=== PATIENT | male | born 1950 ===

== ENCOUNTER 2018-07-24 10:00 | Inpatient (IN) | payer MEDICARE, MEDICAID ==
[~2018-07-24 10:00] MED LIST: Metoprolol Succinate 100 mg XL Tab PO SCH
[2018-07-24 10:15] VITALS: BMI 21.9
--- NOTE | 2018-07-24 10:33 | ED PDOC ---
Arrival/HPI - History of Present Illness Narrative History of Present Illness (Text): 07/24/18 10:32 65 yo M w/ PMH of HTN, DM, and kidney failure presents to ED s/p fall outside of his house this morning. He reports sitting on his walker and started to roll himself around when he slipped and fell on his back. He reports hitting his head on the pavement. Patient denies preceding dizziness, lightheadedness, loss of consciousness. He reports history of falls due to chronic hip issues making him feel weak. He reports mild L sided neck, shoulder, and hip pain. He denies slurred speech, facial droop, difficulty swallowing. He denies headache, fever, chills, abdominal pain, nausea, vomiting, chest pain, shortness of breath, diarrhea, dysuria. <Cristian Prince - Last Filed: 07/24/18 13:21> <Steven Plascencia - Last Filed: 07/24/18 14:58> - General Chief Complaint: Trauma Time Seen by Provider: 07/24/18 10:02 Past Medical History - Infectious Disease Hx of Infectious Diseases: None - Cardiac Hx Cardiac Disorders: Yes Hx Hypertension: Yes - Pulmonary Hx Respiratory Disorders: No - Neurological Hx Neurological Disorder: No - Renal Hx Dialysis: Yes (LAV shunt) - Endocrine/Metabolic Hx Diabetes Mellitus Type 2: Yes - Hematological/Oncological Hx Blood Disorders: No - Integumentary Hx Dermatological Disorder: No - Musculoskeletal/Rheumatological Hx Arthritis: Yes - Gastrointestinal Hx Gastrointestinal Disorders: No - Genitourinary/Gynecological Hx Genitourinary Disorders: No - Psychiatric Hx Psychophysiologic Disorder: No Hx Substance Use: No - Surgical History Hx Joint Replacement: Yes (LEFT HIP) Hx Vascular Surgery: Yes (L AVF) - Anesthesia Hx Anesthesia: Yes Hx Anesthesia Reactions: No Hx Malignant Hyperthermia: No <Cristian Prince - Last Filed: 07/24/18 13:21> - Provider Review Nursing Documentation Reviewed: Yes <Steven Plascencia - Last Filed: 07/24/18 14:58> Family/Social History Family/Social History: Diabetes, Hypertension Smoking Status: Never Smoked Hx Alcohol Use: No Hx Substance Use: No <Cristian Prince - Last Filed: 07/24/18 13:21> - Physician Review Nursing Documentation Reviewed: Yes <Steven Plascencia - Last Filed: 07/24/18 14:58> Allergies/Home Meds <Cristian Prince - Last Filed: 07/24/18 13:21> <Steven Plascencia - Last Filed: 07/24/18 14:58> Allergies/Adverse Reactions: Allergies No Known Allergies Allergy (Verified 01/26/16 20:01) Home Medications: Home Meds Medication Instructions Recorded Confirmed Atorvastatin [Lipitor] 20 mg PO DAILY 07/24/18 07/24/18 Insulin Detemir [Levemir] 15 unit SC HS 07/24/18 07/24/18 Metoprolol Succinate XL [Toprol XL] 200 mg PO DAILY 07/24/18 07/24/18 Pregabalin [Lyrica] 150 mg PO DAILY 07/24/18 07/24/18 SITagliptin [Januvia] 50 mg PO DAILY 07/24/18 07/24/18 Sevelamer Carbonate [Renvela] 1,600 mg PO TID 07/24/18 07/24/18 Telmisartan 80 mg PO DAILY 07/24/18 07/24/18 Vit B Cplx C No.13/Folic AC/D3 1 each PO DAILY 07/24/18 07/24/18 [Nephrocaps Qt Tablet] Review of Systems - Review of Systems Constitutional: absent: Fatigue, Fevers Eyes: absent: Vision Changes Respiratory: absent: SOB, Cough Cardiovascular: absent: Chest Pain, Syncope Gastrointestinal: absent: Abdominal Pain, Diarrhea, Nausea, Vomiting Genitourinary Male: absent: Dysuria Musculoskeletal: Neck Pain Neurological: absent: Headache, Dizziness, Focal Weakness, Gait Changes, Speech Changes, Facial Droop <Cristian Prince - Last Filed: 07/24/18 13:21> - Physician Review All systems were reviewed & negative as marked: Yes <Steven Plascencia - Last Filed: 07/24/18 14:58> Physical Exam Vital Signs Temp Pulse Resp BP Pulse Ox 07/24/18 10:01 98.2 F 73 18 190/80 H 99 Finger Stick Blood Glucose: 203 - Systems Exam Head: Present: Swelling (mild 2x2cm hemtoma without discoloration or bleeding) Pupils: Present: PERRL Extroacular Muscles: Present: EOMI Conjunctiva: Present: Normal Mouth: Present: Moist Mucous Membranes Neck: Present: Normal Range of Motion, Paraspinal Tenderness. No: Meningeal Signs, MIDLINE TENDERNESS Respiratory/Chest: Present: Clear to Auscultation. No: Respiratory Distress, Accessory Muscle Use, Wheezes, Rales, Rhonchi Cardiovascular: Present: Regular Rate and Rhythm Abdomen: Present: Normal Bowel Sounds. No: Tenderness, Distention, Rebound Back: Present: Paraspinal Tenderness. No: CVA Tenderness, Midline Tenderness Upper Extremity: Present: Normal Inspection, Normal ROM, Neurovascularly Intact. No: Edema Lower Extremity: Present: Normal Inspection, Other (4+ strength b/l) Neurological: Present: GCS=15, CN II-XII Intact, Speech Normal, Motor Func Grossly Intact, Normal Sensory Function, Normal 2Pt Descrimination Skin: Present: Normal Color Psychiatric: Present: Alert, Oriented x 3 <Cristian Prince - Last Filed: 07/24/18 13:21> Vital Signs Reviewed: Yes Vital Signs Temp Pulse Resp BP Pulse Ox 07/24/18 10:01 98.2 F 73 18 190/80 H 99 Temperature: Afebrile Blood Pressure: Hypertensive Pulse: Regular Respiratory Rate: Normal Appearance: Positive for: Well-Appearing, Non-Toxic, Comfortable Pain Distress: None <Steven Plascencia - Last Filed: 07/24/18 14:58> Medical Decision Making ED Course and Treatment: 07/24/18 13:22 Nephro consulted, patient to be admitted for HD. <Cristian Prince - Last Filed: 07/24/18 13:21> ED Course and Treatment: 07/24/18 10:50 In agreement with resident note which contains more details about the patient. Patient seen and evaluated with resident. Came up with plan and treatment together. 68 year old male presents to the ED for medical evaluation s/p mechanical fall at home. Plan: -- CT of head -- Labs -- Tylenol -- X-ray of Left Hip 07/24/18 14:57 seen with residnet s/p mechanical fall imiagng neg. spoke to dr nick boswell hd today as missed at home. . accepted hospitalsist - RAD Interpretation Radiology Orders: 07/24/18 10:33 HEAD W/O CONTRAST [CT] Stat <Steven Plascencia - Last Filed: 07/24/18 14:58> - PA / FAMILY WELFARE SOCIAL WORK PROFESSOR / Resident Statement / has reviewed & agrees with the documentation as recorded. / has examined the patient and agrees with the treatment plan. - Scribe Statement The provider has reviewed the documentation as recorded by the Scribe Vy Duong. All medical record entries made by the Scribe were at my direction and personally dictated by me. I have reviewed the chart and agree that the record accurately reflects my personal performance of the history, physical exam, medical decision making, and the department course for this patient. I have also personally directed, reviewed, and agree with the discharge instructions and disposition. <Steven Plascencia - Last Filed: 07/24/18 14:58> Disposition/Present on Arrival - Present on Arrival Any Indicators Present on Arrival: Yes History of DVT/PE: No History of Uncontrolled Diabetes: Yes Urinary Catheter: No History of Decub. Ulcer: No History Surgical Site Infection Following: None - Disposition Have Diagnosis and Disposition been Completed?: Yes Disposition Time: 13:22 <Cristian Prince - Last Filed: 07/24/18 13:21> <Steven Plascencia - Last Filed: 07/24/18 14:58> - Disposition Diagnosis: Kidney disease, chronic, end stage on dialysis, Diabetes mellitus, Hypertension Disposition: HOSPITALIZED Patient Problems: Current Active Problems Problem Status Onset Diabetes mellitus Acute Hypertension Acute Kidney disease, chronic, end stage on dialysis Acute Condition: STABLE
[2018-07-24 11:22] LABS: BASO # 0.02 K/mm3 (0.0-2.0); BASO % 0.3 % (0.0-3.0); EOS # 0.4 (0.0-0.7); EOS % 5.5 % (1.5-5.0); HEMOGLOBIN 11.1 g/dL (14.0-18.0); LYMPH # 1.1 (1.2-3.4); LYMPH % 16.2 % (22.0-35.0); MEAN CELL VOLUME 96.1 fl (80.0-105.0); MEAN CORPUSCULAR HEMOGLOBIN 30.7 pg (25.0-35.0); MEAN CORPUSCULAR HGB CONC 31.9 g/dl (31.0-37.0); MEAN PLATELET VOLUME 10.4 fl (7.0-11.0); MONO # 0.3 (0.1-0.6); MONO % 4.1 % (1.0-6.0); RBC 3.62 10^6/uL (3.5-6.1); RED CELL DISTRIBUTION WIDTH 13.7 % (11.5-14.5); WHITE BLOOD COUNT 6.8 10^3/uL (4.5-11.0)
[2018-07-24 11:23] LABS: INR 0.98; PARTIAL THROMBOPLASTIN TIME 34.4 Seconds (26.9-38.3); PROTHROMBIN TIME 11.1 SECONDS (9.4-12.5)
[2018-07-24 12:02] LABS: ALB/GLOB RATIO 1.2 (1.1-1.8); ALBUMIN 3.7 g/dL (3.0-4.8); CALCIUM 9.3 mg/dL (8.4-10.5)
--- NOTE | 2018-07-24 12:28 | CT ---
Date of service: 07/24/2018 PROCEDURE: CT HEAD WITHOUT CONTRAST. HISTORY: s/p fall COMPARISON: None available. TECHNIQUE: Axial computed tomography images were obtained through the head/brain without intravenous contrast. Radiation dose: Total exam DLP = 2620.23 mGy-cm. This CT exam was performed using one or more of the following dose reduction techniques: Automated exposure control, adjustment of the mA and/or kV according to patient size, and/or use of iterative reconstruction technique. FINDINGS: HEMORRHAGE: No intracranial hemorrhage. BRAIN: No mass effect or edema. Minimal diffuse atrophy consistent with patient age. Moderate patchy and confluent deep/subcortical white matter lucency and periventricular white matter lucency consistent with microvascular white matter ischemic change. No evidence of acute infarct. Old bilateral basal ganglia lacunar infarcts. VENTRICLES: Unremarkable. No hydrocephalus. CALVARIUM: Unremarkable. PARANASAL SINUSES: Unremarkable as visualized. No significant inflammatory changes. MASTOID AIR CELLS: Unremarkable as visualized. No inflammatory changes. OTHER FINDINGS: None. IMPRESSION: No acute intracranial hemorrhage. Age related atrophy and chronic white matter ischemic change. Old bilateral basal ganglia lacunar infarcts.
--- NOTE | 2018-07-24 13:28 | RAD ---
Date of service: 07/24/2018 PROCEDURE: Pelvis and left hip HISTORY: fall COMPARISON: TECHNIQUE: Four views were obtained FINDINGS: The right hip is unremarkable. There is a left hip prosthesis with deformity of the proximal femur. There is erosion and widening of the left acetabulum. The femoral head is seated within the acetabulum. IMPRESSION: No acute findings
--- NOTE | 2018-07-24 13:30 | RAD ---
Date of service: 07/24/2018 PROCEDURE: Left Femur Radiographs. HISTORY: fall COMPARISON: None. TECHNIQUE: AP and Lateral Radiographs of the left femur. 4 views obtained. FINDINGS: FEMUR: There is a left hip prosthesis and a small caliber femoral stephen. There is no acute fracture. SOFT TISSUES: Normal. OTHER FINDINGS: None. IMPRESSION: There is a left hip prosthesis and a small caliber femoral stephen. There is no acute fracture.
--- NOTE | 2018-07-24 14:35 | CP.PCM.HP ---
<Veronica Hassan - Last Filed: 07/25/18 06:28> History of Present Illness - History of Present Illness History of Present Illness: HISTORY & PHYSICAL FOR HOSPITALIST SERVICE- DR. RAGHAVENDRA Hassan PGY1 68 y/o M with PMHx of ESRD on HD MWF, IDDM2, HTN, HLD presented to ED after he had feel backwards while walking outside on his way to dialysis. Pt reports he was was sitting on his walker when the walker tipped and he fell backwards on the concrete floor, hitting the back of his head and L shoulder. He reports continues back pain, L shoulder pain and L hip pain. He denies any preceding symptoms of headache, dizziness, chest pain, palpitations, one-sided weakness. He denies loss of consciousness or residual neurological symptoms, including numbness, tingling and weakness after the fall. Pt had a L femoral arthroplasty in the past and reports difficulty walking since the surgery. He uses a walker at home, however still has difficulty walking. Upon interview, pt denies, fevers, chills, headache, dizziness, numbness, tingling, chest pain, palpitations, shortness of breath, dysphagia, nausea, vomiting, constipation, diarrhea. He makes minimal urine d/t ESRD. PMH: ESRD on HD MWF, HTN, HLD All: NKDA SH: Previous hx of tobacco abuse, 5 pack/year smoking history. Previous ETOH a buse, 10 beers/day x 5 years. Denies current use. Denies illiicit drug use PSH: L hip arthroplasty 2011 ([facility] [place]) FH: Mother: Alive: HTN, DM2, Pacemaker. Father: : at 36 y/o due to "bleeding ulcer" Meds: Lyrica 150mg qd, Toprol XL 200mg qd, Telmesartan 80mg qd, Renvela 800mg 2 tab tid, Lipitor 20mg qd, Januvia 50mg qd, Nephro caps 1 tab qd, Levemir 15u HS PMD: Dr. Kulwant Lucio Pharmacy: [facility] [place] French Teacher: Dr. Aleyda De La Garza. HD @ [facility] Present on Admission - Present on Admission Any Indicators Present on Admission: No Review of Systems - Review of Systems Review of Systems: per HPI Past Patient History - Infectious Disease Hx of Infectious Diseases: None - Past Social History Smoking Status: Never Smoked - CARDIAC Hx Cardiac Disorders: Yes Hx Hypertension: Yes - PULMONARY Hx Respiratory Disorders: No - NEUROLOGICAL Hx Neurological Disorder: No - RENAL Hx Dialysis: Yes (LAV shunt) - ENDOCRINE/METABOLIC Hx Diabetes Mellitus Type 2: Yes - HEMATOLOGICAL/ONCOLOGICAL Hx Blood Disorders: No - INTEGUMENTARY Hx Dermatological Problems: No - MUSCULOSKELETAL/RHEUMATOLOGICAL Hx Arthritis: Yes - GASTROINTESTINAL Hx Gastrointestinal Disorders: No - GENITOURINARY/GYNECOLOGICAL Hx Genitourinary Disorders: No - PSYCHIATRIC Hx Psychophysiologic Disorder: No Hx Substance Use: No - SURGICAL HISTORY Hx Joint Replacement: Yes (LEFT HIP) Hx Vascular Surgery: Yes (L AVF) - ANESTHESIA Hx Anesthesia: Yes Hx Anesthesia Reactions: No Hx Malignant Hyperthermia: No Meds Allergies/Adverse Reactions: Allergies Allergy/AdvReac Type Severity Reaction Status Date / Time No Known Allergies Allergy Verified 01/26/16 20:01 Physical Exam - Constitutional Appears: Well, Non-toxic, No Acute Distress, Chronically Ill - Head Exam Head Exam: NORMAL INSPECTION Additional comments: Occipital abrasion. No skin tear - Eye Exam Eye Exam: EOMI, Normal appearance, PERRL - ENT Exam ENT Exam: Mucous Membranes Moist, Normal Exam - Neck Exam Neck exam: Positive for: Normal Inspection Additional comments: No posterior cervical spine tenderness - Respiratory Exam Respiratory Exam: Clear to Auscultation Bilateral, NORMAL BREATHING PATTERN - Cardiovascular Exam Cardiovascular Exam: REGULAR RHYTHM, +S1, +S2 - GI/Abdominal Exam GI & Abdominal Exam: Normal Bowel Sounds, Soft. absent: Tenderness - Extremities Exam Extremities exam: Positive for: normal inspection. Negative for: calf tenderness Additional comments: LUE fistula with bruit noted - Back Exam Back exam: NORMAL INSPECTION - Neurological Exam Neurological exam: Alert, Oriented x3 - Psychiatric Exam Psychiatric exam: Normal Affect, Normal Mood - Skin Skin Exam: Dry, Intact, Warm Results - Vital Signs Recent Vital Signs: Last Vital Signs Temp 98 F 07/24/18 14:06 Pulse 66 07/24/18 14:06 Resp 18 07/24/18 14:06 BP 162/81 H 07/24/18 14:06 Pulse Ox 97 07/24/18 14:06 - Labs Result Diagrams: 07/24/18 10:50 07/24/18 10:50 Labs: Laboratory Results - last 24 hr 0407/24/18 07/24/18 10:50 10:50 10:50 WBC 6.8 RBC 3.62 Hgb 11.1 L Hct 34.8 L MCV 96.1 MCH 30.7 MCHC 31.9 RDW 13.7 Plt Count 168 MPV 10.4 Neut % (Auto) 73.9 H Lymph % (Auto) 16.2 L [place] % (Auto) 4.1 Eos % (Auto) 5.5 H Baso % (Auto) 0.3 Lymph # (Auto) 1.1 L [place] # (Auto) 0.3 Eos # (Auto) 0.4 Baso # (Auto) 0.02 Absolute Neuts (auto) 5.00 PT 11.1 INR 0.98 APTT 34.4 Sodium 138 Potassium 4.0 Chloride 99 Carbon Dioxide 28 Anion Gap 16 BUN 66 H Creatinine 10.8 H* Est GFR ( Amer) 6 Est GFR (Non-Af Amer) 5 Random Glucose 162 H Calcium 9.3 Total Bilirubin 0.4 AST 27 ALT 33 Alkaline Phosphatase 118 Total Protein 6.8 Albumin 3.7 Globulin 3.1 Albumin/Globulin Ratio 1.2 Assessment & Plan - Assessment and Plan (Free Text) Assessment: 68 y/o M with PMHx of ESRD on HD MWF, IDDM2, HTN, HLD admitted to medicine service after experiencing mechanical fall. Pt missed his regularly scheduled Tuesday hemodialysis session, with plans to undergo dialysis during this hospital stay. Plan: ESRD -elevated BUN/Cr, 2/2 to missed dialysis session -Nephrology consulted -Pt to undergo HD today -Will resume pts home medications, including Renvela, & Nephro caps -Further recs per nephrology L Hip, Shoulder Pain -s/p mechanical fall -Hip/Pelvis/Femur xray performed in ER. Pending official radiologist impression -Physical therapy eval & treat -avoid nephrotoxic analgesics HTN -CT head revealing no acute changes, chronic microvascular changes -continue home metoprolol, telmesartan IDDM2 -continue home januvia, levemir -Start ISS-low w/ hypoglycemia protocol -f/u am Hgb A1c Case reviewed with attending physician, Dr. Raghavendra Hassan PGY1 <Pauly Mabry R - Last Filed: 07/28/18 21:08> Results - Vital Signs Recent Vital Signs: Last Vital Signs Temp 98.4 F 07/28/18 14:00 Pulse 66 07/28/18 14:00 Resp 18 07/28/18 14:00 BP 160/82 H 07/28/18 18:43 Pulse Ox 98 07/28/18 14:00 - Labs Result Diagrams: 07/28/18 08:25 07/28/18 08:25 Labs: Laboratory Results - last 24 hr 07/28/18 07/28/18 07/28/18 08:25 08:25 16:16 WBC 6.6 RBC 3.86 Hgb 11.8 L Hct 36.2 L MCV 93.8 MCH 30.6 MCHC 32.6 RDW 13.6 Plt Count 176 MPV 10.2 Sodium 136 Potassium 4.3 Chloride 102 Carbon Dioxide 22 Anion Gap 17 BUN 58 H Creatinine 9.2 H* D Est GFR ( Amer) 7 Est GFR (Non-Af Amer) 6 POC Glucose (mg/dL) 119 H Random Glucose 112 H Calcium 9.8 Attending/Attestation - Attestation I have personally seen and examined this patient.: Yes I have fully participated in the care of the patient.: Yes I have reviewed all pertinent clinical information: Yes Notes (Text): Patient seen and examined by me with resident at 1:45PM on 07/24/18 in the ED. Case including HPI, physical exam, and assessment and plan discussed with resident. Agree with above with following additions/corrections. Patient is a 68-year-old male with past medical history significant for ESRD on HD MWF, insulin dependent DM2, hypertension, gait instability after left hip arthroplasty, and neuropathy that presented to the emergency room s/p a fall. Patient states he was going to his dialysis and was sitting in his walker. He moved the walker on an uneven pavement when he fell over on his left side outside on concrete. Patient states he is now having left hip pain, left shoulder pain, and neck pain. Patient states he did hit his head but denies any headaches. He denies and dizziness or change in vision. No new weakness in arms or legs. He denies loss of consciousness. Patient denies any chest pain or shortness of breath. No palpitations. No fevers or chills. Patient states he makes very little urine and denies any dysuria. No diarrhea or constipation. Patient states that he was unable to do dialysis today. 12 point review of systems reviewed by me. Please see above HPI. All other systems negative. Physical exam: General: Awake and alert sitting up in bed in no acute distress HEENT: Positive abrasion posterior scalp. Extraocular muscles intact, pupils equal and reactive, no scleral icterus. Oropharynx is pink and moist. No p haryngeal erythema or exudate appreciated. Neck is supple. Hearing grossly intact. Ears and nose externally unremarkable. Cardiovascular: Regular rhythm.Normal S1 and S2. Positive systolic murmur. No rubs or gallops appreciated Pulmonary: Normal respiratory effort.No rhonchi, rales, or wheezing ap preciated. Gastrointestinal: Soft, nondistended. Nontender. Positive bowel sounds all 4 quadrants. No guarding. Musculoskeletal: Moves all extremities. No calf tenderness. No edema appreciated. Positive left hip tenderness. Left leg externally rotated. No cervical tenderness or decreased range of motion. Central nervous system: AAOx3, CN 2-12 grossly intact. Dermatologic: Skin warm and dry. 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 1. Left hip pain, left shoulder pain, neck pain s/p mechanical fall. Head CT per radiologist showed no acute intracranial hemorrhage, age related atrophy and chronic white matter ischemic change, old bilateral basal ganglia infarcts. Left femur xray per radiologist showed there is a left hip prosthesis and a small caliber femoral stephen, no acute fracture. Pending left shoulder xray. Pending c- spine CT. PT eval and treat. Fall precautions. 2. ESRD on HD MWF. Patient for dialysis today. Continue home continue home Renvela and Nephro caps. Nephrology recommendations appreciated. 3. Hypertension. Continue home metoprolol and telmisartan 4. Insulin dependent type 2 diabetes. Placed on insulin sliding scale. Continue home Januvia and Levemir. Monitor accuchecks. 5. Neuropathy. Continue home lyrica. Case was discussed in detail with patient regarding current diagnosis, study results, and treatment plan. All questions answered.
[2018-07-24] MEDS ORDERED: Dextrose 50% SYRINGE Inj (50 ml) IV PRN (14:46)
[2018-07-24] MEDS: Insulin Detemir 100 units/ml Vial (Levemir) SC SCH (21:39)
[2018-07-25] MEDS ORDERED: Lidocaine 5% Patch TD ONE (01:27)
[2018-07-25 06:42] LABS: BASO # 0.03 K/mm3 (0.0-2.0); BASO % 0.5 % (0.0-3.0); EOS # 0.4 (0.0-0.7); EOS % 6.6 % (1.5-5.0); HEMOGLOBIN 12.2 g/dL (14.0-18.0); LYMPH # 1.3 (1.2-3.4); LYMPH % 20.2 % (22.0-35.0); MEAN CELL VOLUME 94.7 fl (80.0-105.0); MEAN CORPUSCULAR HEMOGLOBIN 30.9 pg (25.0-35.0); MEAN CORPUSCULAR HGB CONC 32.6 g/dl (31.0-37.0); MEAN PLATELET VOLUME 10.6 fl (7.0-11.0); MONO # 0.4 (0.1-0.6); MONO % 5.6 % (1.0-6.0); RBC 3.95 10^6/uL (3.5-6.1); RED CELL DISTRIBUTION WIDTH 13.3 % (11.5-14.5); WHITE BLOOD COUNT 6.6 10^3/uL (4.5-11.0)
[2018-07-25 07:08] LABS: ALB/GLOB RATIO 1.2 (1.1-1.8); ALBUMIN 3.7 g/dL (3.0-4.8); CALCIUM 9.2 mg/dL (8.4-10.5)
[2018-07-25] MEDS: Insulin Reg-LOW-Coverage SC SCH ×3 (08:11→17:44)
--- NOTE | 2018-07-25 10:29 | CT ---
Date of service: 07/25/2018 PROCEDURE: CT Cervical Spine without contrast HISTORY: s/p fall COMPARISON: None available. TECHNIQUE: Axial computed tomography images were obtained of the cervical spine without the use of intravenous contrast. Coronal and sagittal reformatted images were created and reviewed. Radiation dose: Total exam DLP = 669.4 mGy-cm. This CT exam was performed using one or more of the following dose reduction techniques: Automated exposure control, adjustment of the mA and/or kV according to patient size, and/or use of iterative reconstruction technique. FINDINGS: VERTEBRAE: No fracture. Normal alignment. No destructive bony lesion. DISCS/SPINAL CANAL/NEURAL FORAMINA: Severe disc degeneration is seen at C5-6 and C6-7. There is complete loss of the disc space at these levels as well as bony sclerosis and irregularity of the vertebral endplate. Anterior osteophytes are also seen. There is bilateral foraminal stenosis but no significant central stenosis at these levels. PARASPINAL SOFT TISSUES: Unremarkable. OTHER FINDINGS: Severe aortic calcification IMPRESSION: Severe disc degeneration is seen at C5-6 and C6-7. There is complete loss of the disc space at these levels as well as bony sclerosis and irregularity of the vertebral endplate. Anterior osteophytes are also seen. There is bilateral foraminal stenosis but no significant central stenosis at these levels. No acute fracture
--- NOTE | 2018-07-25 10:38 | RAD ---
Date of service: 07/25/2018 PROCEDURE: Radiographs of the Left Shoulder HISTORY: s/p fall COMPARISON: No prior. TECHNIQUE: Four views obtained. FINDINGS: BONES: There is deformity of the humeral head with flattening of the articular surface. There are several ossified or calcified loose bodies adjacent to the shoulder joint the largest measuring 26 mm. JOINTS: The acromioclavicular joint is unremarkable. Severe degenerative changes in the glenohumeral joint SOFT TISSUES: Normal. OTHER FINDINGS: None. IMPRESSION: There is deformity of the humeral head with flattening of the articular surface. There are several ossified or calcified loose bodies adjacent to the shoulder joint the largest measuring 26 mm.
[2018-07-25] MEDS: Metoprolol Succinate 100 mg XL Tab PO SCH (10:41)
[2018-07-25] MEDS: [UNRECOGNIZED DRUG - REMARK] PO SCH (10:46)
--- NOTE | 2018-07-25 12:27 | CP.PCM.PCO ---
Physician Communication Note - Physician Communication Note Physician Communication Note: PT eval pending
--- NOTE | 2018-07-25 17:48 | CP.PCM.PN ---
<Veronica Hassan - Last Filed: 07/25/18 17:35> Subjective - Date & Time of Evaluation Date of Evaluation: 07/25/18 Time of Evaluation: 11:00 - Subjective Subjective: INTERNAL MEDICINE PROGRESS NOTE FOR DR. MARKY Hassan PGY1 Pt seen and examined at bedside this am. No acute events overnight. Pt continues to report back pain & shoulder pain. Denies numbness/tingling, new weakness. Pt otherwise denying 12 point ROS Objective - Vital Signs/Intake and Output Vital Signs (last 24 hours): Temp Pulse Resp BP Pulse Ox 98.3 F 66 18 168/85 H 99 07/25/18 14:00 07/25/18 14:00 07/25/18 14:00 07/25/18 14:00 07/25/18 14:00 Intake and Output: 07/25/18 07/25/18 06:59 18:59 Intake Total 240 Balance 240 - Medications Medications: Current Medications Acetaminophen (Tylenol 325mg Tab) 650 mg PO Q6H PRN PRN Reason: Fever >100.4 F Last Admin: 07/24/18 20:30 Dose: 650 mg Atorvastatin Calcium (Lipitor) 20 mg PO DIN [facility] Last Admin: 07/24/18 21:38 Dose: 20 mg Dextrose (Dextrose 50% Inj) 0 ml IV STAT PRN; Protocol PRN Reason: Hypoglycemia Protocol Hydralazine HCl (Apresoline) 10 mg IVP Q6H PRN PRN Reason: SBP>170HRHR <100 Dextrose (Dextrose 5% In Water 1000 Ml) 1,000 mls @ 0 mls/hr IV .Q0M PRN; Protocol PRN Reason: Hypoglycemia Protocol Insulin Detemir (Levemir) 15 unit SC HS [facility] Last Admin: 07/24/18 21:39 Dose: 15 units Insulin Human Regular (Humulin R Low) 0 units SC ACHS [facility]; Protocol Last Admin: 07/25/18 12:59 Dose: 2 units Losartan Potassium (Cozaar) 100 mg PO DAILY [facility] Last Admin: 07/25/18 10:41 Dose: 100 mg Metoprolol Succinate (Toprol Xl) 200 mg PO DAILY [facility] Last Admin: 07/25/18 10:41 Dose: 200 mg Vit B Cplx C No.13/Folic Ac/D3 [ Nephrocaps Qt Tablet ] 1 Each 1 each PO DAILY [facility] Last Admin: 07/25/18 10:46 Dose: Not Given Pregabalin (Lyrica) 150 mg PO DAILY [facility] Last Admin: 07/25/18 10:46 Dose: 150 mg Sevelamer HCl (Renagel) 1,600 mg PO TID [facility] Last Admin: 07/25/18 13:01 Dose: 1,600 mg Sitagliptin Phosphate (Januvia) 25 mg PO DAILY [facility] Last Admin: 07/25/18 10:41 Dose: 25 mg Tramadol HCl (Ultram) 50 mg PO Q8H PRN PRN Reason: Pain, moderate (4-7) - Labs Labs: 07/25/18 06:15 07/25/18 06:15 PT 11.1 SECONDS (9.4-12.5) 07/24/18 10:50 INR 0.98 07/24/18 10:50 APTT 34.4 Seconds (26.9-38.3) 07/24/18 10:50 - Constitutional Appears: Well, Non-toxic, No Acute Distress, Chronically Ill - Head Exam Head Exam: NORMAL INSPECTION Additional comments: Occipital abrasion. No skin tear - Eye Exam Eye Exam: EOMI, Normal appearance, PERRL - ENT Exam ENT Exam: Mucous Membranes Moist, Normal Exam - Neck Exam Neck exam: Positive for: Normal Inspection Additional comments: No posterior cervical spine tenderness - Respiratory Exam Respiratory Exam: Clear to Auscultation Bilateral, NORMAL BREATHING PATTERN - Cardiovascular Exam Cardiovascular Exam: REGULAR RHYTHM, +S1, +S2 - GI/Abdominal Exam GI & Abdominal Exam: Normal Bowel Sounds, Soft. absent: Tenderness - Extremities Exam Extremities exam: Positive for: normal inspection. Negative for: calf tenderness Additional comments: LUE fistula with bruit noted - Back Exam Back exam: NORMAL INSPECTION - Neurological Exam Neurological exam: Alert, Oriented x3 - Psychiatric Exam Psychiatric exam: Normal Affect, Normal Mood - Skin Skin Exam: Dry, Intact, Warm Assessment and Plan - Assessment and Plan (Free Text) Assessment: 68 y/o M with PMHx of ESRD on HD MWF, IDDM2, HTN, HLD admitted to medicine service after experiencing mechanical fall. Pt missed his regularly scheduled Tuesday hemodialysis session, with plans to undergo dialysis during this hospital stay. Plan: ESRD -elevated BUN/Cr, repeat HD tommorrow -Nephrology consulted -Pt to undergo HD tomorrow -Will resume pts home medications, including Renvela, & Nephro caps -Further recs per nephrology L Hip, Shoulder Pain -s/p mechanical fall -Hip/Pelvis/Femur xray performed in ER, no acute fractures -avoid nephrotoxic analgesics HTN -CT head revealing no acute changes, chronic microvascular changes -continue home metoprolol, telmesartan IDDM2 -continue home januvia, levemir -Start ISS-low w/ hypoglycemia protocol -f/u am Hgb A1c DVT/GI: SCD/Pepcid Dispo: PT recommending subacute rehab. Pt to undergo HD tomorrow and PT treatment Case reviewed with attending physician, Dr. Marky Hassan PGY1 <Jose Cruz Pena - Last Filed: 07/25/18 17:50> Objective - Vital Signs/Intake and Output Vital Signs (last 24 hours): Temp Pulse Resp BP Pulse Ox 98.3 F 66 18 168/85 H 99 07/25/18 14:00 07/25/18 14:00 07/25/18 14:00 07/25/18 14:00 07/25/18 14:00 Intake and Output: 07/25/18 07/25/18 06:59 18:59 Intake Total 240 Balance 240 - Medications Medications: Current Medications Acetaminophen (Tylenol 325mg Tab) 650 mg PO Q6H PRN PRN Reason: Fever >100.4 F Last Admin: 07/24/18 20:30 Dose: 650 mg Atorvastatin Calcium (Lipitor) 20 mg PO DIN [facility] Last Admin: 07/24/18 21:38 Dose: 20 mg Dextrose (Dextrose 50% Inj) 0 ml IV STAT PRN; Protocol PRN Reason: Hypoglycemia Protocol Famotidine (Pepcid) 40 mg PO HS [facility] Hydralazine HCl (Apresoline) 10 mg IVP Q6H PRN PRN Reason: SBP>170HRHR <100 Dextrose (Dextrose 5% In Water 1000 Ml) 1,000 mls @ 0 mls/hr IV .Q0M PRN; Protocol PRN Reason: Hypoglycemia Protocol Insulin Detemir (Levemir) 15 unit SC HS [facility] Last Admin: 07/24/18 21:39 Dose: 15 units Insulin Human Regular (Humulin R Low) 0 units SC ACHS [facility]; Protocol Last Admin: 07/25/18 12:59 Dose: 2 units Losartan Potassium (Cozaar) 100 mg PO DAILY [facility] Last Admin: 07/25/18 10:41 Dose: 100 mg Metoprolol Succinate (Toprol Xl) 200 mg PO DAILY [facility] Last Admin: 07/25/18 10:41 Dose: 200 mg Vit B Cplx C No.13/Folic Ac/D3 [ Nephrocaps Qt Tablet ] 1 Each 1 each PO DAILY [facility] Last Admin: 07/25/18 10:46 Dose: Not Given Pregabalin (Lyrica) 150 mg PO DAILY [facility] Last Admin: 07/25/18 10:46 Dose: 150 mg Sevelamer HCl (Renagel) 1,600 mg PO TID [facility] Last Admin: 07/25/18 13:01 Dose: 1,600 mg Sitagliptin Phosphate (Januvia) 25 mg PO DAILY [facility] Last Admin: 07/25/18 10:41 Dose: 25 mg Tramadol HCl (Ultram) 50 mg PO Q8H PRN PRN Reason: Pain, moderate (4-7) - Labs Labs: 07/25/18 06:15 07/25/18 06:15 PT 11.1 SECONDS (9.4-12.5) 07/24/18 10:50 INR 0.98 07/24/18 10:50 APTT 34.4 Seconds (26.9-38.3) 07/24/18 10:50 Attending/Attestation - Attestation I have personally seen and examined this patient.: Yes I have fully participated in the care of the patient.: Yes I have reviewed all pertinent clinical information, including history, physical exam and plan: Yes
[2018-07-25] MEDS: Insulin Detemir 100 units/ml Vial (Levemir) SC SCH (21:52)
[2018-07-26 07:02] LABS: BASO # 0.03 K/mm3 (0.0-2.0); BASO % 0.5 % (0.0-3.0); EOS # 0.5 (0.0-0.7); EOS % 7.9 % (1.5-5.0); HEMOGLOBIN 11.7 g/dL (14.0-18.0); LYMPH # 1.7 (1.2-3.4); LYMPH % 27.6 % (22.0-35.0); MEAN CELL VOLUME 94.5 fl (80.0-105.0); MEAN CORPUSCULAR HEMOGLOBIN 30.4 pg (25.0-35.0); MEAN CORPUSCULAR HGB CONC 32.1 g/dl (31.0-37.0); MEAN PLATELET VOLUME 10.8 fl (7.0-11.0); MONO # 0.4 (0.1-0.6); MONO % 7.4 % (1.0-6.0); RBC 3.85 10^6/uL (3.5-6.1); RED CELL DISTRIBUTION WIDTH 13.6 % (11.5-14.5)
[2018-07-26 07:38] LABS: ALB/GLOB RATIO 1.1 (1.1-1.8); ALBUMIN 3.3 g/dL (3.0-4.8); CALCIUM 9.1 mg/dL (8.4-10.5)
[2018-07-26] MEDS: Insulin Reg-LOW-Coverage SC SCH ×7 (08:23→21:51)
[2018-07-26] MEDS: Metoprolol Succinate 100 mg XL Tab PO SCH (10:49)
[2018-07-26] MEDS: [UNRECOGNIZED DRUG - REMARK] PO SCH (10:49)
--- NOTE | 2018-07-26 12:25 | CP.PCM.PCO ---
Physician Communication Note - Physician Communication Note Physician Communication Note: PT recommended [facility]A
--- NOTE | 2018-07-26 16:27 | CP.PCM.PN ---
<Veronica Hassan - Last Filed: 07/26/18 16:34> Subjective - Date & Time of Evaluation Date of Evaluation: 07/26/18 Time of Evaluation: 11:00 - Subjective Subjective: INTERNAL MEDICINE NOTE FOR DR. MARKY Hassan PGY1 Pt seen and examined in dialysis unit this am. Pt continues to report L hip pa in. He reports pain has been controlled with tramadol. He denies other complaints. Objective - Vital Signs/Intake and Output Vital Signs (last 24 hours): Temp Pulse Resp BP Pulse Ox 98.4 F 69 18 180/76 H 98 07/26/18 14:00 07/26/18 14:00 07/26/18 14:00 07/26/18 14:00 07/26/18 14:00 Intake and Output: 07/26/18 07/26/18 06:59 18:59 Intake Total 120 Balance 120 - Medications Medications: Current Medications Acetaminophen (Tylenol 325mg Tab) 650 mg PO Q6H PRN PRN Reason: Fever >100.4 F Last Admin: 07/24/18 20:30 Dose: 650 mg Amlodipine Besylate (Norvasc) 5 mg PO DAILY [facility] Last Admin: 07/26/18 10:49 Dose: Not Given Atorvastatin Calcium (Lipitor) 20 mg PO DIN [facility] Last Admin: 07/25/18 17:50 Dose: 20 mg Dextrose (Dextrose 50% Inj) 0 ml IV STAT PRN; Protocol PRN Reason: Hypoglycemia Protocol Famotidine (Pepcid) 20 mg PO HS [facility] Hydralazine HCl (Apresoline) 10 mg IVP Q6H PRN PRN Reason: SBP>170HRHR <100 Last Admin: 07/26/18 06:05 Dose: 10 mg Hydralazine HCl (Apresoline) 25 mg PO Q4 PRN PRN Reason: Other Dextrose (Dextrose 5% In Water 1000 Ml) 1,000 mls @ 0 mls/hr IV .Q0M PRN; Protocol PRN Reason: Hypoglycemia Protocol Insulin Detemir (Levemir) 15 unit SC HS [facility] Last Admin: 07/25/18 21:52 Dose: 15 units Insulin Human Regular (Humulin R Low) 0 units SC ACHS [facility]; Protocol Last Admin: 07/26/18 13:21 Dose: Not Given Losartan Potassium (Cozaar) 100 mg PO DAILY [facility] Last Admin: 07/26/18 10:48 Dose: Not Given Metoprolol Succinate (Toprol Xl) 200 mg PO DAILY [facility] Last Admin: 07/26/18 10:49 Dose: Not Given Vit B Cplx C No.13/Folic Ac/D3 [ Nephrocaps Qt Tablet ] 1 Each 1 each PO DAILY [facility] Last Admin: 07/26/18 10:49 Dose: Not Given Pregabalin (Lyrica) 150 mg PO DAILY [facility] Last Admin: 07/26/18 10:48 Dose: Not Given Sevelamer HCl (Renagel) 1,600 mg PO TID [facility] Last Admin: 07/26/18 13:26 Dose: 1,600 mg Sitagliptin Phosphate (Januvia) 25 mg PO DAILY [facility] Last Admin: 07/26/18 10:48 Dose: Not Given Tramadol HCl (Ultram) 50 mg PO Q8H PRN PRN Reason: Pain, moderate (4-7) Last Admin: 07/26/18 13:32 Dose: 50 mg - Labs Labs: 07/26/18 06:35 07/26/18 06:35 PT 11.1 SECONDS (9.4-12.5) 07/24/18 10:50 INR 0.98 07/24/18 10:50 APTT 34.4 Seconds (26.9-38.3) 07/24/18 10:50 - Constitutional Appears: Well, Non-toxic, No Acute Distress, Chronically Ill - Head Exam Head Exam: NORMAL INSPECTION Additional comments: Occipital abrasion. No skin tear - Eye Exam Eye Exam: EOMI, Normal appearance, PERRL - ENT Exam ENT Exam: Mucous Membranes Moist, Normal Exam - Neck Exam Neck exam: Positive for: Normal Inspection Additional comments: No posterior cervical spine tenderness - Respiratory Exam Respiratory Exam: Clear to Auscultation Bilateral, NORMAL BREATHING PATTERN - Cardiovascular Exam Cardiovascular Exam: REGULAR RHYTHM, +S1, +S2 - GI/Abdominal Exam GI & Abdominal Exam: Normal Bowel Sounds, Soft. absent: Tenderness - Extremities Exam Extremities exam: Positive for: normal inspection. Negative for: calf tenderness Additional comments: LUE fistula with bruit noted - Back Exam Back exam: NORMAL INSPECTION - Neurological Exam Neurological exam: Alert, Oriented x3 - Psychiatric Exam Psychiatric exam: Normal Affect, Normal Mood - Skin Skin Exam: Dry, Intact, Warm Assessment and Plan - Assessment and Plan (Free Text) Assessment: 68 y/o M with PMHx of ESRD on HD MWF, IDDM2, HTN, HLD admitted to medicine service after experiencing mechanical fall. Pt to undergo scheduled HD session & eval by orthopedic surgery Plan: ESRD -elevated BUN/Cr, repeat HD today -Nephrology consulted -Will resume pts home medications, including Renvela, & Nephro caps -Further recs per nephrology L Hip, Shoulder Pain -s/p mechanical fall -Hip/Pelvis/Femur xray performed in ER, no acute fractures -avoid nephrotoxic analgesics -Will consult orthopedic surgery today regarding persistent hip pain, possible hip pain -will continue tramadol for pain HTN -CT head revealing no acute changes, chronic microvascular changes -continue home metoprolol, telmesartan -start amlodipine 5mg -continue hydralazine prn IDDM2 -continue home januvia, levemir -Start ISS-low w/ hypoglycemia protocol -f/u am Hgb A1c DVT/GI: SCD/Pepcid Dispo: PT recommending subacute rehab. Pt to undergo HD and PT treatment Case reviewed with attending physician, Dr. Marky Hassan PGY1 <Jose Cruz Pena - Last Filed: 07/26/18 18:47> Objective - Vital Signs/Intake and Output Vital Signs (last 24 hours): Temp Pulse Resp BP Pulse Ox 98.4 F 77 18 176/77 H 98 07/26/18 14:00 07/26/18 17:33 07/26/18 14:00 07/26/18 17:33 07/26/18 14:00 Intake and Output: 07/26/18 07/26/18 06:59 18:59 Intake Total 120 Balance 120 - Medications Medications: Current Medications Acetaminophen (Tylenol 325mg Tab) 650 mg PO Q6H PRN PRN Reason: Fever >100.4 F Last Admin: 07/24/18 20:30 Dose: 650 mg Amlodipine Besylate (Norvasc) 5 mg PO DAILY [facility] Last Admin: 07/26/18 10:49 Dose: Not Given Atorvastatin Calcium (Lipitor) 20 mg PO DIN [facility] Last Admin: 07/26/18 17:33 Dose: 20 mg Dextrose (Dextrose 50% Inj) 0 ml IV STAT PRN; Protocol PRN Reason: Hypoglycemia Protocol Famotidine (Pepcid) 20 mg PO HS [facility] Hydralazine HCl (Apresoline) 10 mg IVP Q6H PRN PRN Reason: SBP>170HRHR <100 Last Admin: 07/26/18 06:05 Dose: 10 mg Hydralazine HCl (Apresoline) 25 mg PO Q4 PRN PRN Reason: Other Last Admin: 07/26/18 17:33 Dose: 25 mg Dextrose (Dextrose 5% In Water 1000 Ml) 1,000 mls @ 0 mls/hr IV .Q0M PRN; Protocol PRN Reason: Hypoglycemia Protocol Insulin Detemir (Levemir) 15 unit SC [facility] Last Admin: 07/25/18 21:52 Dose: 15 units Insulin Human Regular (Humulin R Low) 0 units SC [facility]; Protocol Last Admin: 07/26/18 17:32 Dose: 1 units Losartan Potassium (Cozaar) 100 mg PO DAILY [facility] Last Admin: 07/26/18 10:48 Dose: Not Given Metoprolol Succinate (Toprol Xl) 200 mg PO DAILY [facility] Last Admin: 07/26/18 10:49 Dose: Not Given Vit B Cplx C No.13/Folic Ac/D3 [ Nephrocaps Qt Tablet ] 1 Each 1 each PO DAILY [facility] Last Admin: 07/26/18 10:49 Dose: Not Given Pregabalin (Lyrica) 150 mg PO DAILY [facility] Last Admin: 07/26/18 10:48 Dose: Not Given Sevelamer HCl (Renagel) 1,600 mg PO TID [facility] Last Admin: 07/26/18 17:33 Dose: 1,600 mg Sitagliptin Phosphate (Januvia) 25 mg PO DAILY [facility] Last Admin: 07/26/18 10:48 Dose: Not Given Tramadol HCl (Ultram) 50 mg PO Q8H PRN PRN Reason: Pain, moderate (4-7) Last Admin: 07/26/18 13:32 Dose: 50 mg - Labs Labs: 07/26/18 06:35 07/26/18 06:35 PT 11.1 SECONDS (9.4-12.5) 07/24/18 10:50 INR 0.98 07/24/18 10:50 APTT 34.4 Seconds (26.9-38.3) 07/24/18 10:50 Attending/Attestation - Attestation I have personally seen and examined this patient.: Yes I have fully participated in the care of the patient.: Yes I have reviewed all pertinent clinical information, including history, physical exam and plan: Yes
--- NOTE | 2018-07-26 16:56 | CP.PCM.CON ---
History of Present Illness - History of Present Illness History of Present Illness: Orthopedic consult: Dr. Daly Patient is a 68 y/o male who c/o L hip pain s/p fall 2 days ago. The patient reports falling onto his left side while using his walker to go to dialysis. The patient has had chronic hip pain for many years. He had L NOE in 2011 in [facility] but does not remember the name of his orthopedic surgeon but vaguely remembers Dr. Powers. Following the surgery, he continued to have difficulties ambulating and L hip painwhich had progressively worsened over the past few years. He uses a walker but frequently has to sit due to pain and weakness. Currently, his pain is moderate and worse with WB and movement. Dr. Daly was consulted for L shoulder pain however, the patient denies any L shoulder pain at this time. He has limited ROM which has been chronic for many years. He denies any radiation of pain/numbness/tingling. He also denies CP/SOB/N/V/D/fever/dysuria/melena. PMH: HTN, HLD, IDDM, ESRD PSH: L NOE meds: as per med rec allergy: NKDA SH: former smoker, former ETOH abuse, denies elicit drug use Review of Systems - Review of Systems All systems: reviewed and no additional remarkable complaints except Review of Systems: as per HPI Past Patient History - Infectious Disease Hx of Infectious Diseases: None - Past Medical History & Family History Past Family History: Reviewed and not pertinent - Past Social History Smoking Status: Never Smoked - CARDIAC Hx Hypercholesterolemia: Yes Hx Hypertension: Yes - PULMONARY Hx Respiratory Disorders: No - NEUROLOGICAL Hx Neurological Disorder: No - RENAL Hx Renal Failure: Yes - ENDOCRINE/METABOLIC Hx Diabetes Mellitus Type 2: Yes - HEMATOLOGICAL/ONCOLOGICAL Hx Blood Disorders: No - INTEGUMENTARY Hx Dermatological Problems: No - MUSCULOSKELETAL/RHEUMATOLOGICAL Hx Arthritis: Yes - GASTROINTESTINAL Hx Gastrointestinal Disorders: No - GENITOURINARY/GYNECOLOGICAL Hx Genitourinary Disorders: No - PSYCHIATRIC Hx Psychophysiologic Disorder: No Hx Substance Use: No - SURGICAL HISTORY Hx Joint Replacement: Yes (LEFT HIP) Hx Vascular Surgery: Yes (L AVF) - ANESTHESIA Hx Anesthesia: Yes Hx Anesthesia Reactions: No Hx Malignant Hyperthermia: No Meds Allergies/Adverse Reactions: Allergies Allergy/AdvReac Type Severity Reaction Status Date / Time No Known Allergies Allergy Verified 01/26/16 20:01 - Medications Medications: Current Medications Acetaminophen (Tylenol 325mg Tab) 650 mg PO Q6H PRN PRN Reason: Fever >100.4 F Last Admin: 07/24/18 20:30 Dose: 650 mg Amlodipine Besylate (Norvasc) 5 mg PO DAILY [facility] Last Admin: 07/26/18 10:49 Dose: Not Given Atorvastatin Calcium (Lipitor) 20 mg PO DIN [facility] Last Admin: 07/25/18 17:50 Dose: 20 mg Dextrose (Dextrose 50% Inj) 0 ml IV STAT PRN; Protocol PRN Reason: Hypoglycemia Protocol Famotidine (Pepcid) 20 mg PO HS [facility] Hydralazine HCl (Apresoline) 10 mg IVP Q6H PRN PRN Reason: SBP>170HRHR <100 Last Admin: 07/26/18 06:05 Dose: 10 mg Hydralazine HCl (Apresoline) 25 mg PO Q4 PRN PRN Reason: Other Dextrose (Dextrose 5% In Water 1000 Ml) 1,000 mls @ 0 mls/hr IV .Q0M PRN; Protocol PRN Reason: Hypoglycemia Protocol Insulin Detemir (Levemir) 15 unit SC HS [facility] Last Admin: 07/25/18 21:52 Dose: 15 units Insulin Human Regular (Humulin R Low) 0 units SC [facility]; Protocol Last Admin: 07/26/18 13:21 Dose: Not Given Losartan Potassium (Cozaar) 100 mg PO DAILY [facility] Last Admin: 07/26/18 10:48 Dose: Not Given Metoprolol Succinate (Toprol Xl) 200 mg PO DAILY [facility] Last Admin: 07/26/18 10:49 Dose: Not Given Vit B Cplx C No.13/Folic Ac/D3 [ Nephrocaps Qt Tablet ] 1 Each 1 each PO DAILY [facility] Last Admin: 07/26/18 10:49 Dose: Not Given Pregabalin (Lyrica) 150 mg PO DAILY [facility] Last Admin: 07/26/18 10:48 Dose: Not Given Sevelamer HCl (Renagel) 1,600 mg PO TID [facility] Last Admin: 07/26/18 13:26 Dose: 1,600 mg Sitagliptin Phosphate (Januvia) 25 mg PO DAILY [facility] Last Admin: 07/26/18 10:48 Dose: Not Given Tramadol HCl (Ultram) 50 mg PO Q8H PRN PRN Reason: Pain, moderate (4-7) Last Admin: 07/26/18 13:32 Dose: 50 mg Physical Exam - Constitutional Appears: Well, No Acute Distress - Head Exam Head Exam: ATRAUMATIC, NORMOCEPHALIC - Eye Exam Eye Exam: EOMI, Normal appearance - ENT Exam ENT Exam: Mucous Membranes Moist - Respiratory Exam Respiratory Exam: NORMAL BREATHING PATTERN - Extremities Exam Additional comments: LLE: lateral hip and groin tenderness limited ROM due to pain sensation intact SP/DP/TN motor intact EHL/FHl/TA/G pedal pulse intact calves soft NT LUE: no tenderness ROM- FF 90 deg, ER-20deg sensation and motor intact AXN/MN/UN/RN radial pulse intact - Neurological Exam Neurological exam: Alert, Oriented x3 - Psychiatric Exam Psychiatric exam: Normal Affect, Normal Mood Results - Vital Signs Recent Vital Signs: Last Vital Signs Temp 98.4 F 07/26/18 14:00 Pulse 69 07/26/18 14:00 Resp 18 07/26/18 14:00 BP 180/76 H 07/26/18 14:00 Pulse Ox 98 07/26/18 14:00 - Labs Result Diagrams: 07/26/18 06:35 07/26/18 06:35 Labs: Laboratory Results - last 24 hr 07/25/18 07/26/18 07/26/18 21:33 06:13 06:35 WBC 6.0 RBC 3.85 Hgb 11.7 L Hct 36.4 L MCV 94.5 MCH 30.4 MCHC 32.1 RDW 13.6 Plt Count 181 MPV 10.8 Neut % (Auto) 56.6 Lymph % (Auto) 27.6 Ponce % (Auto) 7.4 H Eos % (Auto) 7.9 H Baso % (Auto) 0.5 Lymph # (Auto) 1.7 Ponce # (Auto) 0.4 Eos # (Auto) 0.5 Baso # (Auto) 0.03 Absolute Neuts (auto) 3.38 Sodium Potassium Chloride Carbon Dioxide Anion Gap BUN Creatinine Est GFR ( Amer) Est GFR (Non-Af Amer) POC Glucose (mg/dL) 128 H 78 Random Glucose Calcium Phosphorus Magnesium Total Bilirubin AST ALT Alkaline Phosphatase Total Protein Albumin Globulin Albumin/Globulin Ratio 07/26/18 07/26/18 06:35 12:41 WBC RBC Hgb Hct MCV MCH MCHC RDW Plt Count MPV Neut % (Auto) Lymph % (Auto) Ponce % (Auto) Eos % (Auto) Baso % (Auto) Lymph # (Auto) Ponce # (Auto) Eos # (Auto) Baso # (Auto) Absolute Neuts (auto) Sodium 138 Potassium 3.7 Chloride 97 L Carbon Dioxide 27 Anion Gap 17 BUN 62 H Creatinine 9.6 H* D Est GFR ( Amer) 7 Est GFR (Non-Af Amer) 5 POC Glucose (mg/dL) 110 Random Glucose 75 Calcium 9.1 Phosphorus 5.5 H Magnesium 2.2 Total Bilirubin 0.3 AST 22 ALT 30 Alkaline Phosphatase 100 Total Protein 6.2 Albumin 3.3 Globulin 3.0 Albumin/Globulin Ratio 1.1 - Impressions Impression: Accession No. : [id number] Patient Name / ID : LINDA DUMONT / [id number] Exam Date : 07/24/2018 11:31:48 ( Approved ) Study Comment : Sex / Age : M / 68Y Creator : Rafael Mata MD Dictator : Rafael Mata MD Hotel Security Officer : Inspector Brake Lining : Rafael Mata MD Approver2 : Report Date : 07/24/2018 13:25:20 My Comment : Date of service: 07/24/2018 PROCEDURE: Pelvis and left hip HISTORY: fall COMPARISON: TECHNIQUE: Four views were obtained FINDINGS: The right hip is unremarkable. There is a left hip prosthesis with deformity of the proximal femur. There is erosion and widening of the left acetabulum. The femoral head is seated within the acetabulum. IMPRESSION: No acute findings Accession No. : [id number] Patient Name / ID : LINDA DUMONT / [id number] Exam Date : 07/25/2018 09:52:07 ( Approved ) Study Comment : Sex / Age : M / 68Y Creator : Rafael Mata MD Dictator : Rafael Mata MD Hotel Security Officer : Inspector Brake Lining : Rafael Mata MD Approver2 : Report Date : 07/25/2018 10:33:18 My Comment : Date of service: 07/25/2018 PROCEDURE: Radiographs of the Left Shoulder HISTORY: s/p fall COMPARISON: No prior. TECHNIQUE: Four views obtained. FINDINGS: BONES: There is deformity of the humeral head with flattening of the articular surface. There are several ossified or calcified loose bodies adjacent to the shoulder joint the largest measuring 26 mm. JOINTS: The acromioclavicular joint is unremarkable. Severe degenerative changes in the glenohumeral joint SOFT TISSUES: Normal. OTHER FINDINGS: None. IMPRESSION: There is deformity of the humeral head with flattening of the articular surface. There are several ossified or calcified loose bodies adjacent to the shoulder joint the largest measuring 26 mm. Assessment & Plan (1) Contusion of left hip Assessment and Plan: Contusion of L hip with prosthesis -no acute fractures appreciated, chronic fracture of prosthesis -no acute orthopedic intervention needed at this time -pain control as per medicine -PT/OT WBAT -Follow up with previous orthopedic surgeon, may require elective L revision NOE -please reconsult as needed -consult appreciated -d/w Dr. 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
--- NOTE | 2018-07-26 17:12 | CP.PCM.CON ---
History of Present Illness - History of Present Illness History of Present Illness: Nephrology Consultation Note: Assessment: Stable fall at home Diabetic chronic Kidney Disease (E11.22) Hypertensive Chronic Kidney Disease (I12.0) End stage renal disease (N18.6) dependence on hemodialysis (Z99.2) (MWF) via AVF Anemia (D64.9), Hyperphosphatemia (E83.39), Secondary Hyperparathyroidism (E21.1), HTN (I12.0) Plan: Will plan for HD today as ordered. Continue with Nephrovite 1 tab/day. PRBC as needed for anemia. Not on JEFFERSON with dialysis as last Hb >10 Continue with phos binders, last phos level: check BP control with meds as ordered. Patient on RAAS debra , continue same Glycemic control, Dialysis consistent diet Further work up/management as per primary team Dose meds/antibiotics (if needed) for ESRD status. Avoid fleets enema/magnesium based laxatives. Thanks for allowing me to participate in care of your patient. Will follow patient with you. Please call if any Qs. had d/w team Dr Bob Tate Office: [phone] Chief Complaint;fall HPI: Pt is a 68 M with hx of ESRD on hemodialysis (MWF) via left AVF , last dialysis Fri, chronic anemia, hyperphosphatemia, secondary hyperparathyroidism, Diabetes Mellitus, hypertension presented with complaints of fall and hip pain Renal consult requested for ESRD management. besides hip ppain, pt feels usual health. f/up with [facility] for ESRD management. ROS: Cardiovascular: No chest pain. Pulmonary: No shortness of breath Gastrointestinal: denies abdominal pain No nausea. No vomiting. Genitourinary: No pain while urinating. Denies blood in urine. makes small amount only All other negative except as mentioned in HPI Physical Examination: General Appearance: Comfortable, in no acute respiratory distress, co-operative . Vitals reviewed and noted as below Head; Atraumatic, normocephalic ENT: no ulcers no thrush. Tongue is midline. Oropharynx: no rash or ulcers. EYES: Pupils are equal, round and reactive to light accommodation. Eye muscles and extraocular movement intact. Sclera is anicteric. Neck; supple no lymphadenopathy, no thyromegaly or bruit Lungs: Normal respiratory rate/effort. Breath sounds bilateral equal and clear Heart: Normal rate. s1s2 normal. No rub or gallop. Extremities: no edema. No varicose veins Neurological: Patient is alert, awake and oriented to person, place and time. No focal deficit. Strength bilateral appropriate and equal Skin: Warm and dry. Normal turgor. No rash. Palpitation: Normal elasticity for age Abdomen: Abdomen is soft. Bowel sounds +. There is no abdominal tenderness, no guarding/rigidity or organomegaly Psych: normal insight and normal affect/mood MSK: no swelling. Digits and nails normal, no deformity : kidney or bladder not palpable Access: AVF Labs/imaging reviewed. Past medical history, past surgical history, family history, social history, allergy reviewed and noted as below Family Hx: no hx of CKD. Non contributory Past Patient History - Infectious Disease Hx of Infectious Diseases: None - Past Social History Smoking Status: Never Smoked - CARDIAC Hx Cardiac Disorders: Yes Hx Hypertension: Yes - PULMONARY Hx Respiratory Disorders: No - NEUROLOGICAL Hx Neurological Disorder: No - RENAL Hx Dialysis: Yes (LAV shunt) - ENDOCRINE/METABOLIC Hx Diabetes Mellitus Type 2: Yes - HEMATOLOGICAL/ONCOLOGICAL Hx Blood Disorders: No - INTEGUMENTARY Hx Dermatological Problems: No - MUSCULOSKELETAL/RHEUMATOLOGICAL Hx Arthritis: Yes - GASTROINTESTINAL Hx Gastrointestinal Disorders: No - GENITOURINARY/GYNECOLOGICAL Hx Genitourinary Disorders: No - PSYCHIATRIC Hx Psychophysiologic Disorder: No Hx Substance Use: No - SURGICAL HISTORY Hx Joint Replacement: Yes (LEFT HIP) Hx Vascular Surgery: Yes (L AVF) - ANESTHESIA Hx Anesthesia: Yes Hx Anesthesia Reactions: No Hx Malignant Hyperthermia: No Meds Allergies/Adverse Reactions: Allergies Allergy/AdvReac Type Severity Reaction Status Date / Time No Known Allergies Allergy Verified 01/26/16 20:01 - Medications Medications: Current Medications Acetaminophen (Tylenol 325mg Tab) 650 mg PO Q6H PRN PRN Reason: Fever >100.4 F Atorvastatin Calcium (Lipitor) 20 mg PO DIN [facility] Dextrose (Dextrose 50% Inj) 0 ml IV STAT PRN; Protocol PRN Reason: Hypoglycemia Protocol Dextrose (Dextrose 5% In Water 1000 Ml) 1,000 mls @ 0 mls/hr IV .Q0M PRN; Protocol PRN Reason: Hypoglycemia Protocol Insulin Detemir (Levemir) 15 unit SC HS [facility] Insulin Human Regular (Humulin R Low) 0 units SC ACHS [facility]; Protocol Losartan Potassium (Cozaar) 100 mg PO DAILY [facility] Metoprolol Succinate (Toprol Xl) 200 mg PO DAILY [facility] Vit B Cplx C No.13/Folic Ac/D3 [ Nephrocaps Qt Tablet ] 1 Each 1 each PO DAILY [facility] Pregabalin (Lyrica) 150 mg PO DAILY [facility] Sevelamer HCl (Renagel) 1,600 mg PO TID [facility] Sitagliptin Phosphate (Januvia) 25 mg PO DAILY [facility] Results - Vital Signs Recent Vital Signs: Last Vital Signs Temp 98 F 07/24/18 14:06 Pulse 66 07/24/18 14:06 Resp 18 07/24/18 14:06 BP 162/81 H 07/24/18 14:06 Pulse Ox 97 07/24/18 14:06 - Labs Result Diagrams: 07/26/18 06:35 07/26/18 06:35 Labs: Laboratory Results - last 24 hr 07/24/18 07/24/18 07/24/18 10:50 10:50 10:50 WBC 6.8 RBC 3.62 Hgb 11.1 L Hct 34.8 L MCV 96.1 MCH 30.7 MCHC 31.9 RDW 13.7 Plt Count 168 MPV 10.4 Neut % (Auto) 73.9 H Lymph % (Auto) 16.2 L [place] % (Auto) 4.1 Eos % (Auto) 5.5 H Baso % (Auto) 0.3 Lymph # (Auto) 1.1 L [place] # (Auto) 0.3 Eos # (Auto) 0.4 Baso # (Auto) 0.02 Absolute Neuts (auto) 5.00 PT 11.1 INR 0.98 APTT 34.4 Sodium 138 Potassium 4.0 Chloride 99 Carbon Dioxide 28 Anion Gap 16 BUN 66 H Creatinine 10.8 H* Est GFR ( Amer) 6 Est GFR (Non-Af Amer) 5 Random Glucose 162 H Calcium 9.3 Total Bilirubin 0.4 AST 27 ALT 33 Alkaline Phosphatase 118 Total Protein 6.8 Albumin 3.7 Globulin 3.1 Albumin/Globulin Ratio 1.2
--- NOTE | 2018-07-26 17:13 | CP.PCM.PN ---
Subjective - Date & Time of Evaluation Date of Evaluation: 07/25/18 Time of Evaluation: 12:28 - Subjective Subjective: Nephrology Consultation Note: Assessment: Stable fall at home Diabetic chronic Kidney Disease (E11.22) Hypertensive Chronic Kidney Disease (I12.0) End stage renal disease (N18.6) dependence on hemodialysis (Z99.2) (MWF) via AVF Anemia (D64.9), Hyperphosphatemia (E83.39), Secondary Hyperparathyroidism (E21.1), HTN (I12.0) Plan: Will plan for HD tomorrow as ordered. Continue with Nephrovite 1 tab/day. PRBC as needed for anemia. Not on [place] with dialysis as last Hb >10 Continue with phos binders, last phos level: check BP control with meds as ordered. Patient on RAAS debra, continue same. may need further BP meds adjustment Glycemic control, Dialysis consistent diet Further work up/management as per primary team Dose meds/antibiotics (if needed) for ESRD status. Avoid fleets enema/magnesium based laxatives. Thanks for allowing me to participate in care of your patient. Will follow patient with you. Please call if any Qs. had d/w team Dr Bob Tate Office: [phone] Chief Complaint;fall HPI: Pt is a 68 M with hx of ESRD on hemodialysis (MWF) via left AVF , last dialysis Fri, chronic anemia, hyperphosphatemia, secondary hyperparathyroidism, Diabetes Mellitus, hypertension presented with complaints of fall and hip pain Renal consult requested for ESRD management. besides hip ppain, pt feels usual health. f/up with [facility] for ESRD management. ROS: c/o left hip pain and unable to walk Cardiovascular: No chest pain. Pulmonary: No shortness of breath Gastrointestinal: denies abdominal pain No nausea. No vomiting. Genitourinary: No pain while urinating. Denies blood in urine. makes small amount only All other negative except as mentioned in HPI Physical Examination: General Appearance: Comfortable, in no acute respiratory distress, co-operative . Vitals reviewed and noted as below Head; Atraumatic, normocephalic ENT: no ulcers no thrush. Tongue is midline. Oropharynx: no rash or ulcers. EYES: Pupils are equal, round and reactive to light accommodation. Eye muscles and extraocular movement intact. Sclera is anicteric. Neck; supple no lymphadenopathy, no thyromegaly or bruit Lungs: Normal respiratory rate/effort. Breath sounds bilateral equal and clear Heart: Normal rate. s1s2 normal. No rub or gallop. Extremities: no edema. No varicose veins Neurological: Patient is alert, awake and oriented to person, place and time. No focal deficit. Strength bilateral appropriate and equal Skin: Warm and dry. Normal turgor. No rash. Palpitation: Normal elasticity for age Abdomen: Abdomen is soft. Bowel sounds +. There is no abdominal tenderness, no guarding/rigidity or organomegaly Psych: normal insight and normal affect/mood MSK: no swelling. Digits and nails normal, no deformity : kidney or bladder not palpable Access: AVF Labs/imaging reviewed. Past medical history, past surgical history, family history, social history, allergy reviewed and noted as below Family Hx: no hx of CKD. Non contributory Objective - Vital Signs/Intake and Output Vital Signs (last 24 hours): Temp Pulse Resp BP Pulse Ox 98.2 F 65 18 179/76 H 98 07/25/18 06:00 07/25/18 10:41 07/25/18 06:00 07/25/18 10:41 07/25/18 06:00 Intake and Output: 07/25/18 07/25/18 06:59 18:59 Intake Total 240 Balance 240 - Medications Medications: Current Medications Acetaminophen (Tylenol 325mg Tab) 650 mg PO Q6H PRN PRN Reason: Fever >100.4 F Last Admin: 07/24/18 20:30 Dose: 650 mg Atorvastatin Calcium (Lipitor) 20 mg PO DIN [facility] Last Admin: 07/24/18 21:38 Dose: 20 mg Dextrose (Dextrose 50% Inj) 0 ml IV STAT PRN; Protocol PRN Reason: Hypoglycemia Protocol Hydralazine HCl (Apresoline) 10 mg IVP Q6H PRN PRN Reason: SBP>170HRHR <100 Dextrose (Dextrose 5% In Water 1000 Ml) 1,000 mls @ 0 mls/hr IV .Q0M PRN; Protocol PRN Reason: Hypoglycemia Protocol Insulin Detemir (Levemir) 15 unit SC [facility] Last Admin: 07/24/18 21:39 Dose: 15 units Insulin Human Regular (Humulin R Low) 0 units SC ACHS [facility]; Protocol Last Admin: 07/25/18 08:11 Dose: Not Given Losartan Potassium (Cozaar) 100 mg PO DAILY [facility] Last Admin: 07/25/18 10:41 Dose: 100 mg Metoprolol Succinate (Toprol Xl) 200 mg PO DAILY [facility] Last Admin: 07/25/18 10:41 Dose: 200 mg Vit B Cplx C No.13/Folic Ac/D3 [ Nephrocaps Qt Tablet ] 1 Each 1 each PO DAILY [facility] Last Admin: 07/25/18 10:46 Dose: Not Given Pregabalin (Lyrica) 150 mg PO DAILY [facility] Last Admin: 07/25/18 10:46 Dose: 150 mg Sevelamer HCl (Renagel) 1,600 mg PO TID [facility] Last Admin: 07/25/18 10:41 Dose: 1,600 mg Sitagliptin Phosphate (Januvia) 25 mg PO DAILY [facility] Last Admin: 07/25/18 10:41 Dose: 25 mg Tramadol HCl (Ultram) 50 mg PO Q8H PRN PRN Reason: Pain, moderate (4-7) - Labs Labs: 07/25/18 06:15 07/25/18 06:15 PT 11.1 SECONDS (9.4-12.5) 07/24/18 10:50 INR 0.98 07/24/18 10:50 APTT 34.4 Seconds (26.9-38.3) 07/24/18 10:50
--- NOTE | 2018-07-26 17:14 | CP.PCM.PN ---
Subjective - Date & Time of Evaluation Date of Evaluation: 07/26/18 Time of Evaluation: 17:13 - Subjective Subjective: Nephrology Consultation Note: Assessment: Stable fall at home Diabetic chronic Kidney Disease (E11.22) Hypertensive Chronic Kidney Disease (I12.0) End stage renal disease (N18.6) dependence on hemodialysis (Z99.2) (MWF) via AVF Anemia (D64.9), Hyperphosphatemia (E83.39), Secondary Hyperparathyroidism (E21.1), HTN (I12.0) Plan: Will plan for HD today as ordered. Continue with Nephrovite 1 tab/day. PRBC as needed for anemia. Not on [place] with dialysis as last Hb >10 Continue with phos binders, last phos level: 5.5 BP control with meds as ordered. Patient on RAAS debra, continue same. agree with norvasc 5 mg/d. may need further BP meds adjustment. prn hydralazine in meantime Glycemic control, Dialysis consistent diet Further work up/management as per primary team Dose meds/antibiotics (if needed) for ESRD status. Avoid fleets enema/magnesium based laxatives. Thanks for allowing me to participate in care of your patient. Will follow patient with you. Please call if any Qs. had d/w team Dr Bob Tate Office: [phone] Chief Complaint;fall HPI: Pt is a 68 M with hx of ESRD on hemodialysis (MWF) via left AVF , last dialysis Fri, chronic anemia, hyperphosphatemia, secondary hyperparathyroidism, Diabetes Mellitus, hypertension presented with complaints of fall and hip pain Renal consult requested for ESRD management. besides hip ppain, pt feels usual health. f/up with [facility] for ESRD management. ROS: c/o left hip pain and unable to walk Cardiovascular: No chest pain. Pulmonary: No shortness of breath Gastrointestinal: denies abdominal pain No nausea. No vomiting. Genitourinary: No pain while urinating. Denies blood in urine. makes small amount only All other negative except as mentioned in HPI Physical Examination: General Appearance: Comfortable, in no acute respiratory distress, co-operative . Vitals reviewed and noted as below Head; Atraumatic, normocephalic ENT: no ulcers no thrush. Tongue is midline. Oropharynx: no rash or ulcers. EYES: Pupils are equal, round and reactive to light accommodation. Eye muscles and extraocular movement intact. Sclera is anicteric. Neck; supple no lymphadenopathy, no thyromegaly or bruit Lungs: Normal respiratory rate/effort. Breath sounds bilateral equal and clear Heart: Normal rate. s1s2 normal. No rub or gallop. Extremities: no edema. No varicose veins Neurological: Patient is alert, awake and oriented to person, place and time. No focal deficit. Strength bilateral appropriate and equal Skin: Warm and dry. Normal turgor. No rash. Palpitation: Normal elasticity for age Abdomen: Abdomen is soft. Bowel sounds +. There is no abdominal tenderness, no guarding/rigidity or organomegaly Psych: normal insight and normal affect/mood MSK: no swelling. Digits and nails normal, no deformity : kidney or bladder not palpable Access: AVF Labs/imaging reviewed. Past medical history, past surgical history, family history, social history, allergy reviewed and noted as below Family Hx: no hx of CKD. Non contributory Objective - Vital Signs/Intake and Output Vital Signs (last 24 hours): Temp Pulse Resp BP Pulse Ox 98.4 F 69 18 180/76 H 98 07/26/18 14:00 07/26/18 14:00 07/26/18 14:00 07/26/18 14:00 07/26/18 14:00 Intake and Output: 07/26/18 07/26/18 06:59 18:59 Intake Total 120 Balance 120 - Medications Medications: Current Medications Acetaminophen (Tylenol 325mg Tab) 650 mg PO Q6H PRN PRN Reason: Fever >100.4 F Last Admin: 07/24/18 20:30 Dose: 650 mg Amlodipine Besylate (Norvasc) 5 mg PO DAILY [facility] Last Admin: 07/26/18 10:49 Dose: Not Given Atorvastatin Calcium (Lipitor) 20 mg PO DIN [facility] Last Admin: 07/25/18 17:50 Dose: 20 mg Dextrose (Dextrose 50% Inj) 0 ml IV STAT PRN; Protocol PRN Reason: Hypoglycemia Protocol Famotidine (Pepcid) 20 mg PO HS [facility] Hydralazine HCl (Apresoline) 10 mg IVP Q6H PRN PRN Reason: SBP>170HRHR <100 Last Admin: 07/26/18 06:05 Dose: 10 mg Hydralazine HCl (Apresoline) 25 mg PO Q4 PRN PRN Reason: Other Dextrose (Dextrose 5% In Water 1000 Ml) 1,000 mls @ 0 mls/hr IV .Q0M PRN; Protocol PRN Reason: Hypoglycemia Protocol Insulin Detemir (Levemir) 15 unit SC [facility] Last Admin: 07/25/18 21:52 Dose: 15 units Insulin Human Regular (Humulin R Low) 0 units SC [facility]; Protocol Last Admin: 07/26/18 13:21 Dose: Not Given Losartan Potassium (Cozaar) 100 mg PO DAILY [facility] Last Admin: 07/26/18 10:48 Dose: Not Given Metoprolol Succinate (Toprol Xl) 200 mg PO DAILY [facility] Last Admin: 07/26/18 10:49 Dose: Not Given Vit B Cplx C No.13/Folic Ac/D3 [ Nephrocaps Qt Tablet ] 1 Each 1 each PO DAILY [facility] Last Admin: 07/26/18 10:49 Dose: Not Given Pregabalin (Lyrica) 150 mg PO DAILY [facility] Last Admin: 07/26/18 10:48 Dose: Not Given Sevelamer HCl (Renagel) 1,600 mg PO TID [facility] Last Admin: 07/26/18 13:26 Dose: 1,600 mg Sitagliptin Phosphate (Januvia) 25 mg PO DAILY [facility] Last Admin: 07/26/18 10:48 Dose: Not Given Tramadol HCl (Ultram) 50 mg PO Q8H PRN PRN Reason: Pain, moderate (4-7) Last Admin: 07/26/18 13:32 Dose: 50 mg - Labs Labs: 07/26/18 06:35 07/26/18 06:35 PT 11.1 SECONDS (9.4-12.5) 07/24/18 10:50 INR 0.98 07/24/18 10:50 APTT 34.4 Seconds (26.9-38.3) 07/24/18 10:50
[2018-07-26] MEDS: Insulin Detemir 100 units/ml Vial (Levemir) SC SCH (21:49)
[2018-07-27 06:51] LABS: BASO # 0.02 K/mm3 (0.0-2.0); BASO % 0.3 % (0.0-3.0); EOS # 0.3 (0.0-0.7); EOS % 5.8 % (1.5-5.0); HEMOGLOBIN 11.7 g/dL (14.0-18.0); LYMPH # 1.2 (1.2-3.4); LYMPH % 19.9 % (22.0-35.0); MEAN CELL VOLUME 94.5 fl (80.0-105.0); MEAN CORPUSCULAR HEMOGLOBIN 30.6 pg (25.0-35.0); MEAN CORPUSCULAR HGB CONC 32.4 g/dl (31.0-37.0); MEAN PLATELET VOLUME 10.4 fl (7.0-11.0); MONO # 0.4 (0.1-0.6); MONO % 7.5 % (1.0-6.0); RBC 3.82 10^6/uL (3.5-6.1); RED CELL DISTRIBUTION WIDTH 13.8 % (11.5-14.5); WHITE BLOOD COUNT 5.8 10^3/uL (4.5-11.0)
[2018-07-27 07:46] LABS: ALB/GLOB RATIO 1.2 (1.1-1.8); ALBUMIN 3.7 g/dL (3.0-4.8); CALCIUM 9.8 mg/dL (8.4-10.5)
[2018-07-27] MEDS: Insulin Reg-LOW-Coverage SC SCH ×4 (08:02→21:47)
[2018-07-27] MEDS: Metoprolol Succinate 100 mg XL Tab PO SCH (09:44)
[2018-07-27] MEDS: [UNRECOGNIZED DRUG - REMARK] PO SCH (09:45)
--- NOTE | 2018-07-27 14:51 | CP.PCM.PN ---
Subjective - Date & Time of Evaluation Date of Evaluation: 07/27/18 Time of Evaluation: 14:50 - Subjective Subjective: Nephrology Consultation Note: Assessment: Stable fall at home Diabetic chronic Kidney Disease (E11.22) Hypertensive Chronic Kidney Disease (I12.0) End stage renal disease (N18.6) dependence on hemodialysis (Z99.2) (MWF) via AVF Anemia (D64.9), Hyperphosphatemia (E83.39), Secondary Hyperparathyroidism (E21.1), HTN (I12.0) Plan: Will plan for HD today as ordered. Continue with Nephrovite 1 tab/day. PRBC as needed for anemia. Not on [place] with dialysis as last Hb >10 Continue with phos binders, last phos level: 5.5 BP control with meds as ordered. Patient on RAAS debra, continue same. also on BB, agree with norvasc 10 mg/d. may need further BP meds adjustment. prn hydralazine in meantime Glycemic control, Dialysis consistent diet Further work up/management as per primary team Dose meds/antibiotics (if needed) for ESRD status. Avoid fleets enema/magnesium based laxatives. seen by ortho. pt likely for rehab Thanks for allowing me to participate in care of your patient. Will follow patient with you. Please call if any Qs. had d/w team Dr Bob Tate Office: [phone] Chief Complaint;fall HPI: Pt is a 68 M with hx of ESRD on hemodialysis (MWF) via left AVF , last dialysis Fri, chronic anemia, hyperphosphatemia, secondary hyperparathyroidism, Diabetes Mellitus, hypertension presented with complaints of fall and hip pain Renal consult requested for ESRD management. besides hip ppain, pt feels usual health. f/up with Holli for ESRD management. ROS: c/o left hip pain Cardiovascular: No chest pain. Pulmonary: No shortness of breath Gastrointestinal: denies abdominal pain No nausea. No vomiting. Genitourinary: No pain while urinating. Denies blood in urine. makes small amount only All other negative except as mentioned in HPI Physical Examination: General Appearance: Comfortable, in no acute respiratory distress, co-operative . Vitals reviewed and noted as below Head; Atraumatic, normocephalic ENT: no ulcers no thrush. Tongue is midline. Oropharynx: no rash or ulcers. EYES: Pupils are equal, round and reactive to light accommodation. Eye muscles and extraocular movement intact. Sclera is anicteric. Neck; supple no lymphadenopathy, no thyromegaly or bruit Lungs: Normal respiratory rate/effort. Breath sounds bilateral equal and clear Heart: Normal rate. s1s2 normal. No rub or gallop. Extremities: no edema. No varicose veins Neurological: Patient is alert, awake and oriented to person, place and time. No focal deficit. Strength bilateral appropriate and equal Skin: Warm and dry. Normal turgor. No rash. Palpitation: Normal elasticity for age Abdomen: Abdomen is soft. Bowel sounds +. There is no abdominal tenderness, no guarding/rigidity or organomegaly Psych: normal insight and normal affect/mood MSK: no swelling. Digits and nails normal, no deformity : kidney or bladder not palpable Access: AVF Labs/imaging reviewed. Past medical history, past surgical history, family history, social history, allergy reviewed and noted as below Family Hx: no hx of CKD. Non contributory Objective - Vital Signs/Intake and Output Vital Signs (last 24 hours): Temp Pulse Resp BP Pulse Ox 97.5 F L 83 18 174/85 H 97 07/27/18 06:00 07/27/18 09:44 07/27/18 06:00 07/27/18 09:45 07/27/18 06:00 Intake and Output: 07/27/18 07/27/18 06:59 18:59 Intake Total 420 Balance 420 - Medications Medications: Current Medications Acetaminophen (Tylenol 325mg Tab) 650 mg PO Q6H PRN PRN Reason: Fever >100.4 F Last Admin: 07/24/18 20:30 Dose: 650 mg Amlodipine Besylate (Norvasc) 10 mg PO DAILY [facility] Last Admin: 07/27/18 09:45 Dose: 10 mg Atorvastatin Calcium (Lipitor) 20 mg PO DIN [facility] Last Admin: 07/26/18 17:33 Dose: 20 mg Dextrose (Dextrose 50% Inj) 0 ml IV STAT PRN; Protocol PRN Reason: Hypoglycemia Protocol Famotidine (Pepcid) 20 mg PO HS [facility] Last Admin: 07/26/18 21:48 Dose: 20 mg Hydralazine HCl (Apresoline) 10 mg IVP Q6H PRN PRN Reason: SBP>170HRHR <100 Last Admin: 07/26/18 06:05 Dose: 10 mg Dextrose (Dextrose 5% In Water 1000 Ml) 1,000 mls @ 0 mls/hr IV .Q0M PRN; Protocol PRN Reason: Hypoglycemia Protocol Insulin Detemir (Levemir) 15 unit SC HS [facility] Last Admin: 07/26/18 21:49 Dose: 15 units Insulin Human Regular (Humulin R Low) 0 units SC [facility]; Protocol Last Admin: 07/27/18 11:55 Dose: Not Given Losartan Potassium (Cozaar) 100 mg PO DAILY [facility] Last Admin: 07/27/18 09:44 Dose: 100 mg Metoprolol Succinate (Toprol Xl) 200 mg PO DAILY [facility] Last Admin: 07/27/18 09:44 Dose: 200 mg Vit B Cplx C No.13/Folic Ac/D3 [ Nephrocaps Qt Tablet ] 1 Each 1 each PO DAILY [facility] Last Admin: 07/27/18 09:45 Dose: Not Given Pregabalin (Lyrica) 150 mg PO DAILY [facility] Last Admin: 07/27/18 09:44 Dose: 150 mg Sevelamer HCl (Renagel) 1,600 mg PO TID [facility] Last Admin: 07/27/18 14:44 Dose: 1,600 mg Sitagliptin Phosphate (Januvia) 25 mg PO DAILY [facility] Last Admin: 07/27/18 09:44 Dose: 25 mg Tramadol HCl (Ultram) 50 mg PO Q8H PRN PRN Reason: Pain, moderate (4-7) Last Admin: 07/26/18 21:48 Dose: 50 mg - Labs Labs: 07/27/18 06:20 07/27/18 06:20 PT 11.1 SECONDS (9.4-12.5) 07/24/18 10:50 INR 0.98 07/24/18 10:50 APTT 34.4 Seconds (26.9-38.3) 07/24/18 10:50
--- NOTE | 2018-07-27 16:51 | CP.PCM.PN ---
<Veronica Hassan - Last Filed: 07/27/18 16:48> Subjective - Date & Time of Evaluation Date of Evaluation: 07/27/18 Time of Evaluation: 11:00 - Subjective Subjective: INTERNAL MEDICINE PROGRESS NOTE FOR DR. MARKY Hassan PGY1 Pt seen and examined at bedside this am. No acute events overnight. Pt continues to complain of L hip pain. He otherwise denies 12 point ROS. Objective - Vital Signs/Intake and Output Vital Signs (last 24 hours): Temp Pulse Resp BP Pulse Ox 98.2 F 69 20 166/85 H 99 07/27/18 14:00 07/27/18 14:00 07/27/18 14:00 07/27/18 14:00 07/27/18 14:00 Intake and Output: 07/27/18 07/27/18 06:59 18:59 Intake Total 420 Balance 420 - Medications Medications: Current Medications Acetaminophen (Tylenol 325mg Tab) 650 mg PO Q6H PRN PRN Reason: Fever >100.4 F Last Admin: 07/24/18 20:30 Dose: 650 mg Amlodipine Besylate (Norvasc) 10 mg PO DAILY [facility] Last Admin: 07/27/18 09:45 Dose: 10 mg Atorvastatin Calcium (Lipitor) 20 mg PO DIN [facility] Last Admin: 07/26/18 17:33 Dose: 20 mg Dextrose (Dextrose 50% Inj) 0 ml IV STAT PRN; Protocol PRN Reason: Hypoglycemia Protocol Famotidine (Pepcid) 20 mg PO HS [facility] Last Admin: 07/26/18 21:48 Dose: 20 mg Hydralazine HCl (Apresoline) 10 mg IVP Q6H PRN PRN Reason: SBP>170HRHR <100 Last Admin: 07/26/18 06:05 Dose: 10 mg Dextrose (Dextrose 5% In Water 1000 Ml) 1,000 mls @ 0 mls/hr IV .Q0M PRN; Protocol PRN Reason: Hypoglycemia Protocol Insulin Detemir (Levemir) 15 unit SC HS [facility] Last Admin: 07/26/18 21:49 Dose: 15 units Insulin Human Regular (Humulin R Low) 0 units SC ACHS [facility]; Protocol Last Admin: 07/27/18 11:55 Dose: Not Given Losartan Potassium (Cozaar) 100 mg PO DAILY [facility] Last Admin: 07/27/18 09:44 Dose: 100 mg Metoprolol Succinate (Toprol Xl) 200 mg PO DAILY [facility] Last Admin: 07/27/18 09:44 Dose: 200 mg Vit B Cplx C No.13/Folic Ac/D3 [ Nephrocaps Qt Tablet ] 1 Each 1 each PO DAILY [facility] Last Admin: 07/27/18 09:45 Dose: Not Given Pregabalin (Lyrica) 150 mg PO DAILY [facility] Last Admin: 07/27/18 09:44 Dose: 150 mg Sevelamer HCl (Renagel) 1,600 mg PO TID [facility] Last Admin: 07/27/18 14:44 Dose: 1,600 mg Sitagliptin Phosphate (Januvia) 25 mg PO DAILY [facility] Last Admin: 07/27/18 09:44 Dose: 25 mg Tramadol HCl (Ultram) 50 mg PO Q8H PRN PRN Reason: Pain, moderate (4-7) Last Admin: 07/27/18 14:55 Dose: 50 mg - Labs Labs: 07/27/18 06:20 07/27/18 06:20 PT 11.1 SECONDS (9.4-12.5) 07/24/18 10:50 INR 0.98 07/24/18 10:50 APTT 34.4 Seconds (26.9-38.3) 07/24/18 10:50 - Constitutional Appears: Well, Non-toxic, No Acute Distress, Chronically Ill - Head Exam Head Exam: NORMAL INSPECTION Additional comments: Occipital abrasion. No skin tear - Eye Exam Eye Exam: EOMI, Normal appearance, PERRL - ENT Exam ENT Exam: Mucous Membranes Moist, Normal Exam - Neck Exam Neck exam: Positive for: Normal Inspection Additional comments: No posterior cervical spine tenderness - Respiratory Exam Respiratory Exam: Clear to Auscultation Bilateral, NORMAL BREATHING PATTERN - Cardiovascular Exam Cardiovascular Exam: REGULAR RHYTHM, +S1, +S2 - GI/Abdominal Exam GI & Abdominal Exam: Normal Bowel Sounds, Soft. absent: Tenderness - Extremities Exam Extremities exam: Positive for: normal inspection. Negative for: calf tenderness Additional comments: LUE fistula with bruit noted - Back Exam Back exam: NORMAL INSPECTION - Neurological Exam Neurological exam: Alert, Oriented x3 - Psychiatric Exam Psychiatric exam: Normal Affect, Normal Mood - Skin Skin Exam: Dry, Intact, Warm Assessment and Plan - Assessment and Plan (Free Text) Assessment: 68 y/o M with PMHx of ESRD on HD MWF, IDDM2, HTN, HLD admitted to medicine service after experiencing mechanical fall. Pt to undergo scheduled HD session & eval by orthopedic surgery Plan: ESRD on HD MWF -elevated BUN/Cr, repeat HD tomorrow -Nephrology consulted -Will continue pts home medications, including Renvela, & Nephro caps -Further recs per nephrology L Hip, Shoulder Pain -s/p mechanical fall -Hip/Pelvis/Femur xray performed in ER, no acute fractures -avoid nephrotoxic analgesics - Per orthopedic surgery, no acute intervention. Pt to f/u with own orthopedic surgeon outpatient for further eval & possible revision of L NOE - will continue tramadol for pain HTN -CT head revealing no acute changes, chronic microvascular changes -continue home metoprolol, telmesartan -start amlodipine 5mg -continue hydralazine prn IDDM2 -continue home januvia, levemir -Start ISS-low w/ hypoglycemia protocol -f/u am Hgb A1c DVT/GI: SCD/Pepcid Dispo: PT recommending subacute rehab. Pt to undergo HD and PT treatment Case reviewed with attending physician, Dr. Marky Hassan PGY1 <Jose Cruz Pena - Last Filed: 07/27/18 17:23> Objective - Vital Signs/Intake and Output Vital Signs (last 24 hours): Temp Pulse Resp BP Pulse Ox 98.2 F 69 20 166/85 H 99 07/27/18 14:00 07/27/18 14:00 07/27/18 14:00 07/27/18 14:00 07/27/18 14:00 Intake and Output: 07/27/18 07/27/18 06:59 18:59 Intake Total 420 Balance 420 - Medications Medications: Current Medications Acetaminophen (Tylenol 325mg Tab) 650 mg PO Q6H PRN PRN Reason: Fever >100.4 F Last Admin: 07/24/18 20:30 Dose: 650 mg Amlodipine Besylate (Norvasc) 10 mg PO DAILY [facility] Last Admin: 07/27/18 09:45 Dose: 10 mg Atorvastatin Calcium (Lipitor) 20 mg PO DIN [facility] Last Admin: 07/26/18 17:33 Dose: 20 mg Dextrose (Dextrose 50% Inj) 0 ml IV STAT PRN; Protocol PRN Reason: Hypoglycemia Protocol Famotidine (Pepcid) 20 mg PO HS [facility] Last Admin: 07/26/18 21:48 Dose: 20 mg Hydralazine HCl (Apresoline) 10 mg IVP Q6H PRN PRN Reason: SBP>170HRHR <100 Last Admin: 07/26/18 06:05 Dose: 10 mg Dextrose (Dextrose 5% In Water 1000 Ml) 1,000 mls @ 0 mls/hr IV .Q0M PRN; Mina col PRN Reason: Hypoglycemia Protocol Insulin Detemir (Levemir) 15 unit SC HS [facility] Last Admin: 07/26/18 21:49 Dose: 15 units Insulin Human Regular (Humulin R Low) 0 units SC [facility]; Protocol Last Admin: 07/27/18 17:14 Dose: Not Given Losartan Potassium (Cozaar) 100 mg PO DAILY [facility] Last Admin: 07/27/18 09:44 Dose: 100 mg Metoprolol Succinate (Toprol Xl) 200 mg PO DAILY [facility] Last Admin: 07/27/18 09:44 Dose: 200 mg Vit B Cplx C No.13/Folic Ac/D3 [ Nephrocaps Qt Tablet ] 1 Each 1 each PO DAILY [facility] Last Admin: 07/27/18 09:45 Dose: Not Given Pregabalin (Lyrica) 150 mg PO DAILY [facility] Last Admin: 07/27/18 09:44 Dose: 150 mg Sevelamer HCl (Renagel) 1,600 mg PO TID [facility] Last Admin: 07/27/18 14:44 Dose: 1,600 mg Sitagliptin Phosphate (Januvia) 25 mg PO DAILY [facility] Last Admin: 07/27/18 09:44 Dose: 25 mg Tramadol HCl (Ultram) 50 mg PO Q8H PRN PRN Reason: Pain, moderate (4-7) Last Admin: 07/27/18 14:55 Dose: 50 mg - Labs Labs: 07/27/18 06:20 07/27/18 06:20 PT 11.1 SECONDS (9.4-12.5) 07/24/18 10:50 INR 0.98 07/24/18 10:50 APTT 34.4 Seconds (26.9-38.3) 07/24/18 10:50 Attending/Attestation - Attestation I have personally seen and examined this patient.: Yes I have fully participated in the care of the patient.: Yes I have reviewed all pertinent clinical information, including history, physical exam and plan: Yes
[2018-07-27] MEDS: Insulin Detemir 100 units/ml Vial (Levemir) SC SCH (21:44)
[2018-07-27 22:52] VITALS: RESP 18
[2018-07-28] MEDS: Insulin Reg-LOW-Coverage SC SCH ×3 (07:30→16:53)
[2018-07-28 07:31] VITALS: O2SAT 98
[2018-07-28 08:50] LABS: HEMOGLOBIN 11.8 g/dL (14.0-18.0); MEAN CELL VOLUME 93.8 fl (80.0-105.0); MEAN CORPUSCULAR HEMOGLOBIN 30.6 pg (25.0-35.0); MEAN CORPUSCULAR HGB CONC 32.6 g/dl (31.0-37.0); MEAN PLATELET VOLUME 10.2 fl (7.0-11.0); RBC 3.86 10^6/uL (3.5-6.1); RED CELL DISTRIBUTION WIDTH 13.6 % (11.5-14.5); WHITE BLOOD COUNT 6.6 10^3/uL (4.5-11.0)
[2018-07-28] MEDS: [UNRECOGNIZED DRUG - REMARK] PO SCH (09:10)
[2018-07-28] MEDS: Metoprolol Succinate 100 mg XL Tab PO SCH (09:10)
[2018-07-28 09:12] LABS: CALCIUM 9.8 mg/dL (8.4-10.5)
--- NOTE | 2018-07-28 12:20 | CP.PCM.PN ---
Subjective - Date & Time of Evaluation Date of Evaluation: 07/28/18 Time of Evaluation: 12:20 - Subjective Subjective: Nephrology Consultation Note: Assessment: Stable fall at home Diabetic chronic Kidney Disease (E11.22) Hypertensive Chronic Kidney Disease (I12.0) End stage renal disease (N18.6) dependence on hemodialysis (Z99.2) (MWF) via AVF Anemia (D64.9), Hyperphosphatemia (E83.39), Secondary Hyperparathyroidism (E21.1), HTN (I12.0) Plan: Will plan for HD today as ordered. Continue with Nephrovite 1 tab/day. PRBC as needed for anemia. Not on JEFFERSON with dialysis as last Hb >10 Continue with phos binders, last phos level: 5.5 BP control with meds as ordered. Patient on RAAS dbera, continue same. also on BB, agree with norvasc 10 mg/d. hydralazine 50 mg bid added may need further BP meds adjustment. prn hydralazine in addition Glycemic control, Dialysis consistent diet Further work up/management as per primary team Dose meds/antibiotics (if needed) for ESRD status. Avoid fleets enema/magnesium based laxatives. seen by ortho. pt likely for rehab Thanks for allowing me to participate in care of your patient. Will follow patient with you. Please call if any Qs. had d/w team Dr Bob Tate Office: [phone] Chief Complaint;fall HPI: Pt is a 68 M with hx of ESRD on hemodialysis (MWF) via left AVF , last dialysis Fri, chronic anemia, hyperphosphatemia, secondary hyperparathyroidism, Diabetes Mellitus, hypertension presented with complaints of fall and hip pain Renal consult requested for ESRD management. besides hip ppain, pt feels usual health. f/up with [facility] for ESRD manag ement. ROS: c/o left hip pain Cardiovascular: No chest pain. Pulmonary: No shortness of breath Gastrointestinal: denies abdominal pain No nausea. No vomiting. Genitourinary: No pain while urinating. Denies blood in urine. makes small amount only All other negative except as mentioned in HPI Physical Examination: General Appearance: Comfortable, in no acute respiratory distress, co-operative . Vitals reviewed and noted as below Head; Atraumatic, normocephalic ENT: no ulcers no thrush. Tongue is midline. Oropharynx: no rash or ulcers. EYES: Pupils are equal, round and reactive to light accommodation. Eye muscles and extraocular movement intact. Sclera is anicteric. Neck; supple no lymphadenopathy, no thyromegaly or bruit Lungs: Normal respiratory rate/effort. Breath sounds bilateral equal and clear Heart: Normal rate. s1s2 normal. No rub or gallop. Extremities: no edema. No varicose veins Neurological: Patient is alert, awake and oriented to person, place and time. No focal deficit. Strength bilateral appropriate and equal Skin: Warm and dry. Normal turgor. No rash. Palpitation: Normal elasticity for age Abdomen: Abdomen is soft. Bowel sounds +. There is no abdominal tenderness, no guarding/rigidity or organomegaly Psych: normal insight and normal affect/mood MSK: no swelling. Digits and nails normal, no deformity : kidney or bladder not palpable Access: AVF Labs/imaging reviewed. Past medical history, past surgical history, family history, social history, al lergy reviewed and noted as below Family Hx: no hx of CKD. Non contributory Objective - Vital Signs/Intake and Output Vital Signs (last 24 hours): Temp Pulse Resp BP Pulse Ox 97.7 F 70 18 169/73 H 98 07/28/18 06:00 07/28/18 06:00 07/28/18 06:00 07/28/18 06:00 07/28/18 06:00 Intake and Output: 07/28/18 07/28/18 06:59 18:59 Intake Total 480 Balance 480 - Medications Medications: Current Medications Acetaminophen (Tylenol 325mg Tab) 650 mg PO Q6H PRN PRN Reason: Fever >100.4 F Last Admin: 07/24/18 20:30 Dose: 650 mg Amlodipine Besylate (Norvasc) 10 mg PO DAILY [facility] Last Admin: 07/28/18 09:10 Dose: Not Given Atorvastatin Calcium (Lipitor) 20 mg PO DIN [facility] Last Admin: 07/27/18 17:34 Dose: 20 mg Dextrose (Dextrose 50% Inj) 0 ml IV STAT PRN; Protocol PRN Reason: Hypoglycemia Protocol Famotidine (Pepcid) 20 mg PO HS [facility] Last Admin: 07/27/18 21:44 Dose: 20 mg Hydralazine HCl (Apresoline) 10 mg IVP Q6H PRN PRN Reason: SBP>170HRHR <100 Last Admin: 07/26/18 06:05 Dose: 10 mg Hydralazine HCl (Apresoline) 50 mg PO BID [facility] Dextrose (Dextrose 5% In Water 1000 Ml) 1,000 mls @ 0 mls/hr IV .Q0M PRN; Prot ocol PRN Reason: Hypoglycemia Protocol Insulin Detemir (Levemir) 15 unit SC HS [facility] Last Admin: 07/27/18 21:44 Dose: 15 units Insulin Human Regular (Humulin R Low) 0 units SC ACHS [facility]; Protocol Last Admin: 07/28/18 07:30 Dose: Not Given Losartan Potassium (Cozaar) 100 mg PO DAILY [facility] Last Admin: 07/28/18 09:09 Dose: Not Given Metoprolol Succinate (Toprol Xl) 200 mg PO DAILY [facility] Last Admin: 07/28/18 09:10 Dose: Not Given Vit B Cplx C No.13/Folic Ac/D3 [ Nephrocaps Qt Tablet ] 1 Each 1 each PO DAILY [facility] Last Admin: 07/28/18 09:10 Dose: Not Given Pregabalin (Lyrica) 150 mg PO DAILY [facility] Last Admin: 07/28/18 09:10 Dose: Not Given Sevelamer HCl (Renagel) 1,600 mg PO TID [facility] Last Admin: 07/28/18 09:10 Dose: Not Given Sitagliptin Phosphate (Januvia) 25 mg PO DAILY [facility] Last Admin: 07/28/18 09:10 Dose: Not Given Tramadol HCl (Ultram) 50 mg PO Q8H PRN PRN Reason: Pain, moderate (4-7) Last Admin: 07/27/18 14:55 Dose: 50 mg - Labs Labs: 07/28/18 08:25 07/28/18 08:25 PT 11.1 SECONDS (9.4-12.5) 07/24/18 10:50 INR 0.98 07/24/18 10:50 APTT 34.4 Seconds (26.9-38.3) 07/24/18 10:50
[2018-07-28 14:33] VITALS: PULSE 66; TEMP 98.4
--- NOTE | 2018-07-28 14:41 | CP.PCM.DIS ---
Provider - Provider Date of Admission: 07/25/18 16:56 Attending physician: Pauly Mabry DO Consults: 07/24/18 12:49 Consult [Physician Consult] Routine Comment: Consulting Provider: Bob Tate Consulting Physician: Bob Tate Reason for Consult: esrd 07/26/18 11:07 Orthopedic Consult Routine Comment: Consulting Provider: Ben Daly Consulting Physician: Ben Daly Reason for Consult: L hip prosthesis, pain s/p fall, ?revision Time Spent in preparation of Discharge (in minutes): 45 Diagnosis - Discharge Diagnosis (1) Kidney disease, chronic, end stage on dialysis Status: Chronic (2) Contusion of left hip Status: Acute (3) Hypertension Status: Chronic (4) S/P hip replacement Status: Resolved Hospital Course - Lab Results Lab Results: Most Recent Lab Values WBC 6.6 10^3/uL (4.5-11.0) 07/28/18 08:25 RBC 3.86 10^6/uL (3.5-6.1) 07/28/18 08:25 Hgb 11.8 g/dL (14.0-18.0) L 07/28/18 08:25 Hct 36.2 % (42.0-52.0) L 07/28/18 08:25 MCV 93.8 fl (80.0-105.0) 07/28/18 08:25 MCH 30.6 pg (25.0-35.0) 07/28/18 08:25 MCHC 32.6 g/dl (31.0-37.0) 07/28/18 08:25 RDW 13.6 % (11.5-14.5) 07/28/18 08:25 Plt Count 176 10^3/uL (120.0-450.0) 07/28/18 08:25 MPV 10.2 fl (7.0-11.0) 07/28/18 08:25 Neut % (Auto) 66.5 % (50.0-68.0) 07/27/18 06:20 Lymph % (Auto) 19.9 % (22.0-35.0) L 07/27/18 06:20 [place] % (Auto) 7.5 % (1.0-6.0) H 07/27/18 06:20 Eos % (Auto) 5.8 % (1.5-5.0) H 07/27/18 06:20 Baso % (Auto) 0.3 % (0.0-3.0) 07/27/18 06:20 Lymph # (Auto) 1.2 (1.2-3.4) 07/27/18 06:20 [place] # (Auto) 0.4 (0.1-0.6) 07/27/18 06:20 Eos # (Auto) 0.3 (0.0-0.7) 07/27/18 06:20 Baso # (Auto) 0.02 K/mm3 (0.0-2.0) 07/27/18 06:20 Absolute Neuts (auto) 3.87 (1.4-6.5) 07/27/18 06:20 PT 11.1 SECONDS (9.4-12.5) 07/24/18 10:50 INR 0.98 07/24/18 10:50 APTT 34.4 Seconds (26.9-38.3) 07/24/18 10:50 Sodium 136 mmol/L (132-148) 07/28/18 08:25 Potassium 4.3 mmol/L (3.6-5.0) 07/28/18 08:25 Chloride 102 mmol/L (98-107) 07/28/18 08:25 Carbon Dioxide 22 mmol/L (21-33) 07/28/18 08:25 Anion Gap 17 (10-20) 07/28/18 08:25 BUN 58 mg/dL (7-21) H 07/28/18 08:25 Creatinine 9.2 mg/dl (0.8-1.5) H* D 07/28/18 08:25 Est GFR ( Amer) 7 07/28/18 08:25 Est GFR (Non-Af Amer) 6 07/28/18 08:25 POC Glucose (mg/dL) 136 mg/dL (65-110) H 07/27/18 20:36 Random Glucose 112 mg/dL (70-110) H 07/28/18 08:25 Hemoglobin A1c 8.0 % (4.2-6.5) H 07/25/18 06:15 Calcium 9.8 mg/dL (8.4-10.5) 07/28/18 08:25 Phosphorus 4.6 mg/dL (2.5-4.5) H 07/27/18 06:20 Magnesium 2.3 mg/dL (1.7-2.2) H 07/27/18 06:20 Total Bilirubin 0.5 mg/dL (0.2-1.3) 07/27/18 06:20 AST 29 U/L (17-59) 07/27/18 06:20 ALT 30 U/L (7-56) 07/27/18 06:20 Alkaline Phosphatase 115 U/L (38-126) 07/27/18 06:20 Total Protein 6.9 g/dL (5.8-8.3) 07/27/18 06:20 Albumin 3.7 g/dL (3.0-4.8) 07/27/18 06:20 Globulin 3.2 gm/dL 07/27/18 06:20 Albumin/Globulin Ratio 1.2 (1.1-1.8) 07/27/18 06:20 - Hospital Course Hospital Course: Upon Admission: 68 y/o M with PMHx of ESRD on HD MWF, IDDM2, HTN, HLD presented to ED after he had feel backwards while walking outside on his way to dialysis. Pt reports he was was sitting on his walker when the walker tipped and he fell backwards on the concrete floor, hitting the back of his head and L shoulder. He reports continues back pain, L shoulder pain and L hip pain. He denies any preceding symptoms of headache, dizziness, chest pain, palpitations, one-sided weakness. He denies loss of consciousness or residual neurological symptoms, including numbness, tingling and weakness after the fall. Pt had a L femoral arthroplasty in the past and reports difficulty walking since the surgery. He uses a walker at home, however still has difficulty walking. Hospital Course: Nephrology was consulted and pt was continued on his regular dialysis regimen on MWF. Pt was also evaluated by orthopedic surgery for his L hip/L shoulder. Per Ortho: "no acute orthopedic intervention needed at this time. PT/OT WBAT. Follow up with previous orthopedic surgeon, may require elective L revision NOE. 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 During hospital course, pt was hypertensive. Two new agents were added, including amlodipine 10mg and hydralazine 50mg. Upon Discharge Pt is doing well. He has been undergoing HD on MWF. He has been tolerating physical therapy. He continues to report hip pain that is alleviated with tramadol. He is agreeable to transfer to subacute rehabilitation. He will be transferred and continued on his medications. Pt instructed on medication compliance, outpatient followup with specialist and to return to nearest ED if symptoms return or new symptoms present. Shoulder Xray 07/25/18: There is deformity of the humeral head with flattening of the articular surface. There are several ossified or calcified loose bodies adjacent to the shoulder joint the largest measuring [address] 07/24/18: Severe disc degeneration is seen at C5-6 and C6-7. There is complete loss of the disc space at these levels as well as bony sclerosis and irregularity of the vertebral endplate. Anterior osteophytes are also seen. There is bilateral foraminal stenosis but no significant central stenosis at these levels.No acute fracture Femur Xray 07/24/18: There is a left hip prosthesis and a small caliber femoral stephen. There is no acute fracture. Hip/Pelvis Xray 07/24/18: No acute findings CT Head 07/24/18: No acute intracranial hemorrhage. Age related atrophy and chronic white matter ischemic change. Old bilateral basal ganglia lacunar infarcts. Discharge Exam - Head Exam Head Exam: ATRAUMATIC, NORMOCEPHALIC Additional comments: mild superficial occipital abrasion noted. healing - Eye Exam Eye Exam: EOMI, Normal appearance - ENT Exam ENT Exam: Mucous Membranes Moist - Neck Exam Neck exam: Normal Inspection - Respiratory Exam Respiratory Exam: NORMAL BREATHING PATTERN, UNREMARKABLE - Cardiovascular Exam Cardiovascular Exam: REGULAR RHYTHM, +S1, +S2 - GI/Abdominal Exam GI & Abdominal Exam: Normal Bowel Sounds, Unremarkable - Extremities Exam Extremities exam: normal inspection - Back Exam Back exam: NORMAL INSPECTION - Neurological Exam Neurological exam: Alert, Oriented x3 - Psychiatric Exam Psychiatric exam: Normal Affect, Normal Mood - Skin Skin Exam: Dry, Intact, Warm Additional comments: LUE fistula noted. Discharge Plan - Discharge Medications Prescriptions: amLODIPine [Norvasc] 10 mg PO DAILY #14 tab - Follow Up Plan Condition: STABLE Disposition: REHAB FACILITY/REHAB UNIT Instructions: High Blood Pressure (DC), Diabetes Type 2 (DC), Heart Disease in Diabetics (DC), Renal Failure Diet (DC), Contusion in Adults (DC), Hypertension (DC), Hypertension (GEN) Additional Instructions: Please follow up with your primary care physician within 3-5 days of discharge from the hospital Please follow up with your managing cognitive engineer (kidney doctor) within 1 week of discharge from the hospital Please continue attending dialysis sessions as directed Please continue rehabilitation at the subacute rehabilitation facility Please continue your medications at the subacute rehab facility You were started on new medications for high blood pressure. The medications are listed below Amlodipine 10mg. Take one tablet by mouth every day Hydralazine 50mg. Take one tablet by mouth twice a day Please discuss these new medications with your primary care doctor Please contact the orthopedic surgeon who performed your original left hip surgery. Please schedule an appointment with him/her. Please inform him of your hospital admission here. If your symptoms return, or you experience new symptoms, please return to the nearest emergency room Referrals: Bob Tate MD [Staff Provider] - Ben Daly MD [Staff Provider] -
[2018-07-28 18:45] VITALS: BP 160/82
== END 2018-07-29 | DRG 604 ==
LOC: ED 10:00 → ERH 12:49 → 5RNO 19:00 → OBSVTOIN 07-25 16:56 → 5RNO 07-26 09:07
PROVIDERS: ADMIT Hospitalist; ATTEND Hospitalist
PROC: 5A1D70Z Performance of Urinary Filtration, Intermittent, Less than 6 Hours Per Day (ICD-10-PCS; principal; 2018-07-24)
PROC: 5A1D70Z Performance of Urinary Filtration, Intermittent, Less than 6 Hours Per Day (ICD-10-PCS; 2018-07-26)
PROC: 5A1D70Z Performance of Urinary Filtration, Intermittent, Less than 6 Hours Per Day (ICD-10-PCS; 2018-07-28)
DX: S70.02XA Contusion of left hip, initial encounter (principal); N18.6 End stage renal disease; I12.0 Hypertensive chronic kidney disease with stage 5 chronic kidney disease or end stage renal disease; N25.81 Secondary hyperparathyroidism of renal origin; M87.9 Osteonecrosis, unspecified; M54.9 Dorsalgia, unspecified; W01.0XXA Fall on same level from slipping, tripping and stumbling without subsequent striking against object, initial encounter; Z91.81 History of falling; R53.1 Weakness; E11.22 Type 2 diabetes mellitus with diabetic chronic kidney disease; Z79.4 Long term (current) use of insulin; Z79.899 Other long term (current) drug therapy; Z79.84 Long term (current) use of oral hypoglycemic drugs; Z99.2 Dependence on renal dialysis; M25.552 Pain in left hip; M25.512 Pain in left shoulder; Z87.891 Personal history of nicotine dependence; D64.9 Anemia, unspecified; E11.40 Type 2 diabetes mellitus with diabetic neuropathy, unspecified; E78.00 Pure hypercholesterolemia, unspecified; E78.5 Hyperlipidemia, unspecified; E83.39 Other disorders of phosphorus metabolism; M48.00 Spinal stenosis, site unspecified; Y92.009 Unspecified place in unspecified non-institutional (private) residence as the place of occurrence of the external cause; Z82.49 Family history of ischemic heart disease and other diseases of the circulatory system; Z83.3 Family history of diabetes mellitus; Z96.642 Presence of left artificial hip joint